=== PATIENT | male | born 1975 ===

== ENCOUNTER 2019-11-29 08:56 | Outpatient (REF) | payer MEDICAID, SELFPAY ==
--- NOTE | 2019-11-29 | US_ITS ---
EXAMINATION: ULTRASOUND ABDOMEN COMPLETE WITH ELASTOGRAPHY. CLINICAL INFORMATION: Chronic hepatitis C. COMPARISON: None TECHNIQUE: Multiple 2-D grayscale and color Doppler ultrasound images of the abdomen were obtained along with elastography. FINDINGS: Pancreas: Visualized portions are unremarkable. The tail is obscured by bowel gas shadowing. Abdominal aorta: Unremarkable. Inferior vena cava: Unremarkable. Liver: No minimal surface nodularity and some images without significant focal abnormality. Punctate echogenic calcifications are noted. The main portal vein is patent. Elastography: 2.61 median value, IQR/median 0.16. Gallbladder: Unremarkable. Common bile duct: 0.4 cm. Right kidney: 9.5 cm. Unremarkable. IMPRESSION: 1. Mild surface nodularity seen on some images suggest early cirrhosis without focal abnormality. Small coarse calcifications demonstrate benign features. Elastography shows a fibrosis stage in the range of moderate to severe with good sampling.
== END 2019-11-29 08:57 | disposition home or self-care (01) ==
LOC: HO.US 08:56
PROVIDERS: Visit Provider Family Medicine
DX: B18.2 Chronic viral hepatitis C (principal)
CPT/HCPCS: 76705; 76981

== ENCOUNTER 2021-07-08 09:01 | Emergency (ER) | payer MEDICAID, SELFPAY ==
--- NOTE | ~2021-07-08 | CT_ITS ---
EXAMINATION: CT HEAD WITHOUT CONTRAST CLINICAL INFORMATION: Headache. Blurred vision. COMPARISON: Head CT February 03, 2019 TECHNIQUE: Contiguous axial imaging was performed from the skull base to vertex without intravenous administration of contrast. This CT examination was performed using dose optimization techniques as appropriate, variously including the following: *Automated exposure control *Adjustment of mA and/or kV according to patient size (this includes techniques or standardized protocols for targeted exams where dose is matched to indication/reason for exam; i.e. extremities or head) *Use of iterative reconstruction technique DLP: 708 mGy-cm FINDINGS: There is no evidence of acute intracranial hemorrhage or territorial infarction. No abnormal mass effect or midline shift is seen. [place] to white matter differentiation is well preserved. No extra-axial fluid collections are identified. The ventricles are normal in size. There is no abnormal attenuation within the brain parenchyma. The osseous structures and soft tissues are normal. Small osteophyte osteoma noted within the right frontal sinus. There are scattered opacified ethmoid air cells again noted. Minimal mucosal thickening of the sphenoid sinus. Other visualized paranasal sinuses and mastoid air cells are well aerated. CT/CT head/brain wo con IMPRESSION: 1. No acute intracranial pathology. 2. Sinus disease.
[2021-07-08 09:11] VITALS: BP 157/97; PULSE 100; RESP 20; TEMP 36.1; O2SAT 98; BMI 26.6
--- NOTE | 2021-07-08 10:16 | ED.HA ---
HPI - Headache General Chief Complaint: Headache Stated Complaint: headache Time Seen by Provider: 07/08/21 10:09 Source: patient Mode of arrival: ambulatory Limitations: no limitations History of Present Illness HPI Narrative: 46 y/o male with history of HTN presents to the ER with headache x1 week. He states that the headache started behind both of his eyes and is now progressed to his entire head any feels pressure in the back of his head. He feels like is head is in a vice. He also reports intermittent dizziness and blurred vision. He had a similar headache in the past and came to the ER where he was found to be significantly hypertensive and started on antihypertensive medications. He reports intermittent compliance, has lately not been taking his blood pressure medication because it and he has not seen his doctor in some time. He denies any weakness, numbness, tingling. This is not the worse headache of his life. He denies a history of migraines. MD elicited complaint: headache Pertinent past history: hypertension Onset (ago): week(s) (1) Onset description: gradually Location: generalized Severity: moderate Pain scale (0-10): 8 Quality & Timing: throbbing and squeezing Exacerbating factors: light and noise Relieving factors: NSAIDs Context: occurred at rest Associated symptoms: photophobia, sensitivity to sound and lightheadedness Treatments prior to arrival: none Related Data Previous Rx's Medication Instructions Recorded amlodipine 5 mg-benazepril 10 mg 1 cap PO DAILY #30 cap 07/08/21 capsule tnmckwyopm-qzxlymzstflmw-gxtzipxc 1 tab PO Q6H PRN #14 tab 07/08/21 50 mg-325 mg-40 mg tablet Allergies Allergy/AdvReac Type Severity Reaction Status Date / Time No Known Allergies Allergy Unverified 11/11/19 19:46 [No Known Allergies*] Review of Systems Review of Systems: Constitutional: No Fever, No Chills ENT/Mouth: No sore throat, No Rhinorrhea Eyes: No Eye Pain, No Swelling, No Redness, +blurred vision Cardiovascular: No Chest Pain, No SOB, No Orthopnea, No Edema Respiratory: No Cough, No Sputum Gastrointestinal: No Nausea, No Vomiting, No Diarrhea, No abdominal Pain Genitourinary: No Dysuria, No Urinary Frequency, No Hematuria Musculoskeletal: No joint pain, No Myalgias Skin: No Skin Lesions, No rash Neuro: No Weakness, No Numbness, + Dizziness, + Headache Psych: + Anxiety/Panic, No Depression Heme/Lymph: No Bruising, No Lymphadenopathy PMFSH Social History Social History Advance Directives: No Advance Directives Information Provided: No Physical Exam Vital Signs: Vital Signs: Last Vital Signs Temp 97 F 07/08/21 09:11 Pulse 100 07/08/21 09:11 Resp 18 07/08/21 12:00 BP 157/97 H 07/08/21 09:11 Pulse Ox 98 07/08/21 09:11 BMI result Body Mass Index 26.6 Appearance: Alert. Oriented X3. No acute distress. Eyes: Pupils equal, round and reactive to light. EOMI, no nystagmus ENT: Pharynx normal. Neck: Normal inspection. Neck supple. CVS: Normal heart rate and rhythm. Pulses normal. Respiratory: No respiratory distress. Breath sounds normal. Abdomen: Soft and nontender. +BS x4 Skin: Skin warm and dry. Normal skin color. Normal skin turgor. No rashes. Extremities: No lower extremity edema. Neuro: Oriented X 3. No motor deficit. No sensory deficit. Steady gait Course Course Course Narrative: 46-year-old male presents to the ER with 1 week of generalized headache. He feels like his ?brain is swollen.? He reports some dizziness and vision changes. He has had similar ER visit in the past when he was found to be hypertensive. Blood pressure today is 157/97. He has been off of his antihypertensives because of noncompliance. Will get CT scan and medicate with Fioricet. Will re-evaluate. Reevaluation(s) Reevaluation #1: CT head is unremarkable. Patient reports some prevent with his headache but would like an additional medication to help with the pain. IM Toradol ordered with good affect. He is asking for refill of his amlodipine/benazepril for his blood pressure. He states he will follow-up with his primary care doctor for further refills going forward. Counseled on the importance of medication compliance, diet compliance, and close outpatient follow-up. Stable for discharge home. MDM - Headache Lab Data Labs: Lab Results 07/08/21 07/08/21 Range/Units 10:29 10:29 COVID-19 ([facility]) Negative (Negative) COVID-19 Clin Com See Note Influenza Type A (NINO) Negative (Negative) Influenza Type B (NINO) Negative (Negative) Influenza A & B Note See Note Critical Care Time Critical Care Time Critical Care Time: No Discharge Plan Discharge Clinical Impression: Headache, Hypertension Patient Disposition: Home, Self-Care Instructions: Hypertension (ED), General Headache (ED) Additional Instructions: Your CT scan was normal. You are negative for COVID and Flu. Take the prescribed medication as needed for headaches. Stay hydrated, drink plenty of fluids. Follow up with your doctor this week. A 1 month supply of your blood pressure medication has been sent to your pharmacy. Follow-up with your doctor for refills. If you develop new or worsening symptoms call 911 or come back to the ER for further evaluation. Prescriptions: New ejohtqklai-kfwegdmqhqqdc-lbmv 50-325-40 mg tablet 1 tab PO Q6H PRN (Reason: pain) Qty: 14 0RF amlodipine-benazepril 5-10 mg capsule 1 cap PO DAILY Qty: 30 0RF
[2021-07-08] MEDS: Butalb/Acetamin/Caff 50/325/40 TABLET 1 TAB PO (10:32)
[2021-07-08 11:12] LABS: IDNOW Serial# 16C4AD1C; Influenza A Negative (Negative); Influenza B2 Negative (Negative)
[2021-07-08 11:13] LABS: COVID-19 Test Negative (Negative)
[2021-07-08] MEDS: Ketorolac Tromethamine 30 MG/ML VIAL IM (11:58)
[2021-07-08 12:00] VITALS: RESP 18
== END 2021-07-08 13:09 | disposition home or self-care (01) ==
PROVIDERS: Physician Assistant; Emergency Provider Emergency Medicine
DX: R51.9 Headache, unspecified (principal); I10 Essential (primary) hypertension; Z91.14 Patient's other noncompliance with medication regimen; Z20.822 Contact with and (suspected) exposure to COVID-19
CPT/HCPCS: 70450; 87502; 87635; 96372; 99283; 99284; J1885

== ENCOUNTER 2021-07-10 16:14 | Emergency (ER) | payer MEDICAID, SELFPAY ==
--- NOTE | ~2021-07-10 | XR_ITS ---
EXAMINATION: XR CHEST CLINICAL INFORMATION: Chest pain COMPARISON: None TECHNIQUE: Frontal view of the chest was obtained. FINDINGS: The lungs are clear. There is no pneumothorax, pleural reaction, infiltrate, or effusion. The heart is normal in size. The costophrenic sulci are well-defined. The hilar and mediastinal contours and visualized bony structures are unremarkable. XR/XR chest 1V IMPRESSION: Unremarkable examination.
--- NOTE | 2021-07-10 16:18 | ECG_ITS ---
Test Reason : chest pain Blood Pressure : / mmHG Vent. Rate : 080 BPM Atrial Rate : 081 BPM P-R Int : 152 ms QRS Dur : 082 ms QT Int : 338 ms P-R-T Axes : 047 037 044 degrees QTc Int : 389 ms Normal sinus rhythm Normal ECG No significant changes when compared with the previous EKG of 03 feb 2019 Referred By: Generic ED Physician Electronically Signed By:POONAM MCQUEEN
[2021-07-10 16:24] VITALS: BP 143/101; PULSE 81; RESP 18; TEMP 36.2; O2SAT 99; BMI 26.6
[2021-07-10 16:36] LABS: MANUAL DIFF FLAG NO
[2021-07-10 16:42] LABS: Basophils Absolute Auto 0.1 X10*3/uL (0.0-0.2); Basophils Percent Auto 0.5 % (0-2); Eosinophils Absolute Auto 0.3 X10*3/uL (0.0-0.4); Eosinophils Percent Auto 2.1 % (0-4); Hematocrit 42.4 % (42.0-52.0); Imm Gran Abs Auto 0.04 X10*3/uL (0.00-0.03); Imm Gran Pct Auto 0.3 % (0.0-0.4); Mean Corpuscular Hemoglobin 26.5 pg (27.0-33.0); Mean Corpuscular Volume 80.2 fL (80.0-98.0); Mean Platelet Volume 10.9 fL (9.4-12.4); Monocytes Absolute Auto 0.7 X10*3/uL (0.1-1.2); Monocytes Percent Auto 5.3 % (2-11); Neutrophils Absolute Auto 7.4 x10*3/uL (2.0-8.3); Neutrophils Percent Auto 59.8 % (45-73); Platelet Count 260 X10*3/uL (160-400); Red Blood Count 5.29 X10*6/uL (4.60-5.80); Red Cell Distribution Width 12.9 % (11.0-16.0); White Blood Count 12.4 X10*3/uL (4.8-10.8)
[2021-07-10 16:56] LABS: Anion Gap 14 (12-20); Blood Urea Nitrogen 11 mg/dL (9-16); Calcium 10.5 mg/dL (8.4-10.2); Carbon Dioxide 27 mmol/L (22-29); Chloride 105 mmol/L (96-108); Creatinine Clr Calc Pharmacy 77.7; Estimated Glomerular Filt Rate > 60; Glucose Random 99 mg/dL (60-115); Potassium 4.1 mmol/L (3.3-5.1); Sodium 142 mmol/L (135-145)
[2021-07-10 17:01] LABS: Troponin-I High Sensitivity 3.9 ng/L (<3.5-35.0)
--- NOTE | 2021-07-10 17:36 | ED_ITS ---
HPI - Chest Pain General Chief Complaint: Chest Pain Stated Complaint: chest pain Time Seen by Provider: 07/10/21 17:27 Source: patient Mode of arrival: ambulatory Limitations: no limitations History of Present Illness HPI narrative: Patient comes to the emergency room complaining of chest pain that started 6 hours ago. Patient states that 2 days ago he was started on blood pressure medication (amlodipine-benazepril) for headaches, high blood pressure and chest pressure. States that he has been doing well. Denies headache or chest pain but complaining of chest pressure. States that around noon he started feeling palpitations, he became very anxious and scared, started having chest pressure and came to the emergency room. Patient states that he feels anxious/agitated. Related Data Previous Rx's Medication Instructions Recorded amlodipine 5 mg-benazepril 10 mg 1 cap PO DAILY #30 cap 07/08/21 capsule ysysedcwpu-ccmhqdnxglohl-ytjcbfyt 1 tab PO Q6H PRN #14 tab 07/08/21 50 mg-325 mg-40 mg tablet Allergies Allergy/AdvReac Type Severity Reaction Status Date / Time No Known Allergies Allergy Verified 07/10/21 16:24 [No Known Allergies*] Review of Systems Review of Systems: Constitutional : No Weight loss, No Fever, No Chills, No Night Sweats, No Fatigue, No Malaise ENT/Mouth : No Hearing loss, No Ear Pain, No Nasal Congestion, No Sinus Pain, No Hoarseness, No sore throat, No Rhinorrhea, No Swallowing Difficulty Eyes: No Eye Pain, No Swelling, No Redness, No Foreign Body, No Discharge, No Vision Changes Cardiovascular : Complaining of chest pressure for 6 hours, palpitations No SOB, No Dyspnea on Exertion, No Orthopnea Respiratory : No Cough, No Sputum, No Wheezing, No Smoke Exposure, No Dyspnea Gastrointestinal : No Nausea, No Vomiting, No Diarrhea, No Constipation, No abdominal Pain, No Hematochezia, No Melena Genitourinary : no irregular bleeding, No Dysuria, No Urinary Frequency, No Hematuria, No Urinary Incontinence, No Urgency, No Flank Pain, No Urinary Flow Changes, No Hesitancy Musculoskeletal : No joint pain, No Myalgias, No Joint Swelling Skin : No Skin Lesions, No rash Neuro : No Weakness, No Numbness, No Paresthesias, No Loss of Consciousness, No Dizziness, No Headache Psych: complaining of feeling anxious, agitated No Depression, No SI/HI/AH/VH, No Social Issues, Heme/Lymph: No Bruising, No Bleeding,No Lymphadenopathy Endocrine : No Polyuria, No Polydipsia, No Temperature Intolerance [facility] Past Medical History Medical History (Updated 07/10/21 @ 17:46 by Pilar Redd MD) Hypertension Social History Social History Advance Directives: No Advance Directives Information Provided: No Physical Exam Vital Signs: Vital Signs: Last Vital Signs Temp 97.2 F 07/10/21 16:24 Pulse 81 07/10/21 16:24 Resp 18 07/10/21 16:24 BP 143/101 H 07/10/21 16:24 Pulse Ox 99 07/10/21 16:24 BMI result Body Mass Index 26.6 Course Course Course Narrative: Patient has been having palpitations, chest pressure for 6 hours now. Patient's heart rate is in the low 80s, blood pressure 140 systolic. EKG and troponin within normal limits. Patient crying, states that he has been going ?through a lot?, states that he feels very agitated. Patient giving p.o. Ativan. After p.o. Ativan, patient states that he feels much better, he states that he has residual achiness between his ribs on the right side. Otherwise he feels much better. I discussed with the patient that if he continues having symptoms, it would be a good idea to talk to his primary care physician about scheduling a stress test. MDM - Chest Pain Lab Data Result diagrams: 07/10/21 16:24 07/10/21 16:24 Labs: Lab Results 07/10/21 07/10/21 07/10/21 Range/Units 16:24 16:24 16:24 WBC 12.4 H (4.8-10.8) X10*3/uL RBC 5.29 (4.60-5.80) X10*6/uL Hgb 14.0 (14.0-18.0) g/dl Hct 42.4 (42.0-52.0) % MCV 80.2 (80.0-98.0) fL MCH 26.5 L (27.0-33.0) pg MCHC 33.0 (31.0-36.0) g/dl RDW 12.9 (11.0-16.0) % Plt Count 260 (160-400) X10*3/uL MPV 10.9 (9.4-12.4) fL Immature Gran % (Auto) 0.3 (0.0-0.4) % Neut % (Auto) 59.8 (45-73) % Lymph % (Auto) 32.0 (20-40) % [place] % (Auto) 5.3 (2-11) % Eos % (Auto) 2.1 (0-4) % Baso % (Auto) 0.5 (0-2) % Lymph # (Auto) 4.0 (1.2-4.9) X10*3/uL [place] # (Auto) 0.7 (0.1-1.2) X10*3/uL Eos # (Auto) 0.3 (0.0-0.4) X10*3/uL Baso # (Auto) 0.1 (0.0-0.2) X10*3/uL Abs Immat Gran (auto) 0.04 H (0.00-0.03) X10*3/uL Absolute Neuts (auto) 7.4 (2.0-8.3) x10*3/uL Absolute Nucleated RBC 0.000 (0.0-0.012) X10*3/uL Nucleated RBC % (auto) 0.0 (0.0-0.2) /100WBC Sodium 142 (135-145) mmol/L Potassium 4.1 (3.3-5.1) mmol/L Chloride 105 (96-108) mmol/L Carbon Dioxide 27 (22-29) mmol/L Anion Gap 14 (12-20) BUN 11 (9-16) mg/dL Creatinine 1.06 (0.5-1.4) mg/dL Estim Creat Clear Calc 77.7 Estimated GFR > 60 Random Glucose 99 (60-115) mg/dL Calcium 10.5 H (8.4-10.2) mg/dL Troponin I High Sens 3.9 (<3.5-35.0) ng/L Imaging Data Chest x-ray: Radiologist's impression: he lungs are clear. There is no pneumothorax, pleural reaction, infiltrate, or effusion. The heart is normal in size. The costophrenic sulci are well-defined. The hilar and mediastinal contours and visualized bony structures are unremarkable. XR/XR chest 1V IMPRESSION: Unremarkable examination. ECG Data ECG #1: Attestation: I personally reviewed and interpreted this ECG as follows: (Sinus rhythm, heart rate 80, no ST segment depression or elevation, no T-wave inversion, QTC 389) Discharge Plan Discharge Clinical Impression: Atypical chest pain, Anxiety Patient Disposition: Home, Self-Care Instructions: Chest Pain (ED), Anxiety (ED) Additional Instructions: Please follow-up with your primary care physician tomorrow. If you have any worsening or new symptoms, please return to the emergency room or call 911 Prescriptions: No Action xuyusnatxy-srsrqfycpqfae-aaxt 50-325-40 mg tablet 1 tab PO Q6H PRN (Reason: pain) Qty: 14 0RF amlodipine-benazepril 5-10 mg capsule 1 cap PO DAILY Qty: 30 0RF
[2021-07-10] MEDS: LORazepam 1 MG TABLET 2 MG PO (17:41)
== END 2021-07-10 19:48 | disposition home or self-care (01) ==
PROVIDERS: Emergency Provider Emergency Medicine
DX: R07.89 Other chest pain (principal); F41.1 Generalized anxiety disorder; F43.0 Acute stress reaction; Z79.899 Other long term (current) drug therapy
CPT/HCPCS: 36415; 71045; 80048; 84484; 85025; 93005; 99282; 99283; 99284

== ENCOUNTER → 2021-10-31 10:50 | Outpatient (BNVA) | payer MEDICAID, SELFPAY | PROVIDERS: PCP Registered Nurse; Visit Provider Nurse Practitioner | DX: K64.9 Unspecified hemorrhoids (principal); K62.5 Hemorrhage of anus and rectum; G89.29 Other chronic pain; M54.6 Pain in thoracic spine; R13.10 Dysphagia, unspecified; R55 Syncope and collapse; K74.60 Unspecified cirrhosis of liver; B18.2 Chronic viral hepatitis C | CPT/HCPCS: 99202 ==

== ENCOUNTER 2021-11-01 08:54 | Outpatient (REF) | payer MEDICAID, SELFPAY ==
--- NOTE | ~2021-11-01 | US_ITS ---
EXAMINATION: US COMPLETE ABDOMEN WITH LIVER ELASTOGRAPHY CLINICAL INFORMATION: Liver disease COMPARISON: None. TECHNIQUE: Real-time imaging of the abdominal viscera. Noninvasive ultrasound liver fibrosis assessment is performed using Álvaro ElastPQ point quantification shear wave elastography (2D-SWE) with a C5-2 MHz transducer. Multiple elastography samples are obtained. FINDINGS: PANCREAS: The visualized pancreatic head and body are normal in appearance. The remainder of the pancreas is obscured from visualization by the overlying bowel gas. ABDOMINAL AORTA: The proximal, middle, and distal aortic segments are normal in caliber. INFERIOR VENA CAVA: Visualized portions are normal. LIVER: The liver demonstrates normal size, contour and echogenicity. No focal lesion or intrahepatic biliary duct dilatation. There are punctate echogenic calcification right hepatic lobe. The right lobe measures 16.0 cm in length. The left lobe measures 9.7 cm in length. Portal flow is hepatopedal Shear wave liver elastography median stiffness is 1.95 m/s (reference: normal median stiffness is 1.3 m/s or less). IQR/median stiffness to assess sampling precision is 0.18 (reference: good quality data set is IQR/median stiffness of 0.15 or less). GALLBLADDER: Normal. The gallbladder is physiologically distended without evidence of stones, sludge, polyps, wall thickening or pericholecystic fluid. COMMON BILE DUCT: Normal in caliber measuring 0.5 cm in diameter. RIGHT KIDNEY: Normal. No hydronephrosis. No renal calculi or focal parenchymal lesions. The kidney measures 10.4 cm in maximum dimension. LEFT KIDNEY: Normal. No hydronephrosis. No renal calculi or focal parenchymal lesions. The kidney measures 10.2 cm in maximum dimension. SPLEEN: Normal. The spleen measures 8.8 cm in maximum dimension. FREE FLUID: None. US/US abdomen comp w elastography IMPRESSION: 1. Punctate echogenic calcification right hepatic lobe otherwise liver is unremarkable. 2. Liver elastography: Median liver stiffness is 1.95 m/s. findings correlate with cACLD(suggestive). REFERENCE: Society of Radiologists in Ultrasound Liver Stiffness Thresholds (2019): LIVER STIFFNESS THRESHOLDS: *Liver Stiffness equal or less than 1.3 m/s: High probability of being normal. *Liver Stiffness less than 1.7 m/s: In the absence of other known clinical signs, rules out compensated advanced chronic liver disease. *Liver Stiffness 1.7-2.1 m/s: Suggestive of compensated advanced chronic liver disease but need further test for confirmation. *Liver Stiffness over 2.1 m/s: Rules in compensated advanced chronic liver disease. *Liver Stiffness over 2.4 m/s: Suggestive of clinically significant portal hypertension. QUALITY OF DATA SET: *IQR/Median value equal or less than 0.15 implies a quality data set. *IQR/Median value over 0.15 implies a poor quality data set. SIGNIFICANT CHANGE FROM PRIOR EXAM: Significant change if liver stiffness measurement is 10% or greater from prior exam. OTHER CONSIDERATIONS: The stage of liver fibrosis may be overestimated in the setting of acute hepatitis, liver inflammation, elevated liver function tests, hepatic vascular congestion, obstructive cholestasis, non-fasting state, and infiltrative diseases such as amyloidosis and lymphoma. In some patients with NAFLD, the liver stiffness thresholds for compensated advanced chronic liver disease may be lower. In causes other than viral hepatitis and NAFLD, liver stiffness thresholds are not well established.
== END 2021-11-01 08:55 | disposition home or self-care (01) ==
LOC: HO.US 08:54
PROVIDERS: Visit Provider Registered Nurse
DX: K76.9 Liver disease, unspecified (principal)
CPT/HCPCS: 76705; 76981

== ENCOUNTER 2021-12-07 08:33 | Outpatient (REF) | payer MEDICAID, SELFPAY ==
--- NOTE | ~2021-12-07 | XR_ITS ---
EXAMINATION: THORACIC AND LUMBAR SPINE CLINICAL INFORMATION: Unspecified in the right. COMPARISON: None TECHNIQUE: Thoracic spine 3 views. Lumbar spine 3 views. FINDINGS: Thoracic spine: There is normal thoracic kyphosis. The vertebral heights, alignment and disc heights are normal. No visible acute fracture, dislocation or subluxation seen. The paravertebral soft tissues are normal. Lumbar spine: There is normal lumbar lordosis. The vertebral heights, alignment and disc heights are normal. There is no visible acute fracture, dislocation or subluxation. There is mild right para midline spondylosis L2-L3 and L3-L4 disc levels. The SI joints are symmetrical. XR/XR thoracic spine 2V IMPRESSION: Mild right para midline L2-L3 and L3-L4 spondylosis. No visible acute fracture or dislocation seen in lumbar spine. Unremarkable dorsal spine exam.
--- NOTE | ~2021-12-07 | XR_ITS ---
EXAMINATION: THORACIC AND LUMBAR SPINE CLINICAL INFORMATION: Unspecified in the right. COMPARISON: None TECHNIQUE: Thoracic spine 3 views. Lumbar spine 3 views. FINDINGS: Thoracic spine: There is normal thoracic kyphosis. The vertebral heights, alignment and disc heights are normal. No visible acute fracture, dislocation or subluxation seen. The paravertebral soft tissues are normal. Lumbar spine: There is normal lumbar lordosis. The vertebral heights, alignment and disc heights are normal. There is no visible acute fracture, dislocation or subluxation. There is mild right para midline spondylosis L2-L3 and L3-L4 disc levels. The SI joints are symmetrical. XR/XR lumbar spine 2-3V IMPRESSION: Mild right para midline L2-L3 and L3-L4 spondylosis. No visible acute fracture or dislocation seen in lumbar spine. Unremarkable dorsal spine exam.
--- NOTE | ~2021-12-07 | FL_ITS ---
EXAMINATION: FL BARIUM SWALLOW CLINICAL INFORMATION: Dizziness and increased heart rate when eating COMPARISON: None TECHNIQUE: Barium swallow examination is performed using fluoroscopic evaluation in addition to multiple fluoroscopic spot views. The patient is imaged both upright and prone and using both thick and thin sulfate along with effervescent granules. Barium tablet was also administered. Fluoroscopy time: 0.9 minutes DAP: 4.5 Gycm2 Images: 46 FINDINGS: The swallowing mechanism is normal. No aspiration or penetration is seen. There is gastroesophageal reflux. There is mucosal irregularity of the esophagus suggestive of mild esophagitis. No mass or stricture is seen. No hernia is seen. Barium tablet passed freely into the stomach. FL/FL barium swallow IMPRESSION: Gastroesophageal reflux and mild esophagitis.
== END 2021-12-07 08:34 | disposition home or self-care (01) ==
LOC: HO.XRAY 08:33
PROVIDERS: Visit Provider Nurse Practitioner
DX: G89.29 Other chronic pain (principal); K62.5 Hemorrhage of anus and rectum; K64.9 Unspecified hemorrhoids; M54.6 Pain in thoracic spine; R13.10 Dysphagia, unspecified; R55 Syncope and collapse
CPT/HCPCS: 72070; 72100; 74220

== ENCOUNTER 2022-10-08 08:55 | Day surgery (SDC) | payer MEDICAID, SELFPAY ==
--- NOTE | 2022-10-07 10:29 | P.CONAN_ITS ---
Documented by User: Priscilla Astudillo NP 10/07/22 10:29 HPI - Anesthesia Eval Consult details Narrative: 47yo M for Colonoscopy [facility] Active Problems Active Problems: All Active Problems (Updated 10/31/21 @ 11:39 by JIE Florentino) Near syncope (Acute) Dysphagia (Acute) Chronic bilateral thoracic back pain (Acute) Hemorrhoids (Acute) Rectal bleeding (Acute) Depression (Acute) Chronic low back pain (Acute) Pre-diabetes (Acute) Smoker (Acute) Chronic hepatitis C (Acute) Cirrhosis (Acute) Past Medical History Medical History Hypertension Opioid abuse Testicular torsion Surgical History Surgical History History of orchiectomy S/P tendon repair Social History Social History Advance Directives: No Advance Directives Information Provided: Yes Meds Allergies Allergy/AdvReac Type Severity Reaction Status Date / Time No Known Allergies Allergy Verified 10/31/21 11:03 [No Known Allergies*] Exam Exam Date and Time: October 07, 2022 1029 Assessment and Plan Assessment Anesthesia Assessment: Chart Reviewed Documented by User: Nathalia Chen MD 10/08/22 09:09 [facility] Past Medical History Medical History Hypertension Opioid abuse Testicular torsion Family History Family history of problems with anesthesia: No Surgical History Surgical History History of orchiectomy S/P tendon repair History of Problems with Anesthesia: No Social History Social History Advance Directives: No Advance Directives Information Provided: Yes Meds Allergies Allergy/AdvReac Type Severity Reaction Status Date / Time No Known Allergies Allergy Verified 10/31/21 11:03 [No Known Allergies*] Exam Airway Mallampati Class: II TM Dist: >3cm Neck ROM: Full Heart: rrr Lungs: cta Assessment and Plan Assessment Anesthesia Assessment: Anesthesia Plan Discussed and Smoking Cess. Discussed Final Anesthetic Review Family History of Problems with Anesthesia: No History of Problems with Anesthesia: No NPO: Yes ASA Class: III Final Preanesthetic Review: No Changes in Pt Med Stat, Meds/Allgs Chart Reviewed, Consent Obtained/Reviewed and Anes Risks/Benef Reviewed Patient Risk: Intermediate Procedure Risk: Low Anesthetic Plan Anesthetic Plan: MAC: Disposition: Standard PACU
[2022-10-08 09:10] VITALS: BMI 27.3
[2022-10-08 09:19] VITALS: BP 130/77; PULSE 70; RESP 16; TEMP 36.3; O2SAT 97
--- NOTE | 2022-10-08 09:19 | MHC.SHP ---
Pre-Procedural Eval Section A Date of Service: 10/08/22 Section B Chief Complaint: Hemorrhage of anus and rectum Relevant Family History (Specify if Yes): No Relevant Social History: Other (specify) (prior hx of opioid use) Present Medications: see Short Stay Collaborative assessment Medical History: Significant History (Chronic liver disease with cirrhosis History of opioid abuse Smoker Chronic hepatitis C Pre diabetes Hypertension Chronic low back pain Depression) History of Previous Operations: Relevant previous surgery/procedure and date(s) (Orchiectomy status post t testicular torsion Left foot tendon repair) Allergies: Allergies Allergy/AdvReac Type Severity Reaction Status Date / Time No Known Allergies Allergy Verified 10/31/21 11:03 [No Known Allergies*] Review of Systems Sugical H&P ROS: Negative: Constitution, Cardiovascular, Respiratory, Neurological, Psychiatric, Hem-Onc, Allergic/Immunologic, Gastrointestinal, Genitourinary, Musculoskeletal, Integumentary, Endocrine and Eyes/Ears/Nose/Throat Exam Surgical H&P Exam: Normal: HEENT, Normal: Heart, Normal: Lungs, Normal: Extremities, Normal: Abdomen, Normal: Skin and Normal: Neurological Plan Diagnosis/Plan: Unchanged I have reviewed the history and physical and performed a pertinent physical examination on my patient. No changes have occurred unless specified. Time Spent With Patient Time: Total time managing care of this patient today ____ minutes.
[2022-10-08] MEDS: Lactated Ringers 1,000 ML 100 ML IVCONT (09:31)
--- NOTE | 2022-10-08 10:05 | W.PM.OPN ---
Operative Note Operative Note Date of Service: 10/08/22 Narrative: Operative Information Procedure Description: Colonoscopy Indication: rectal bleeding Anesthesia: MAC COLONOSCOPY Instrument: Olympus variable stiffness pediatric scope 190L Colonoscopy Monitoring: Vital signs and clinical assessment, continuous EKG monitoring, Pulse oximetry, Carbon Dioxide monitoring and blood pressure monitoring were done throughout the procedure. Colon withdrawal time was 7 minutes. Procedure: The patient was placed in the left lateral decubitis position and pre-procedure medications were administered. After a digital rectal examination of the ano-rectum, the video colonoscope was inserted into the rectum and advanced through the colon to the cecum/TI. The colonoscope was slowly withdrawn in a retrograde panoramic fashion and the colon mucosa was carefully examined including a retroflexed view of the rectum. Findings and interventions are described below. Procedure Difficulty: easy Findings: Terminal Ileum-normal Cecum: 8-10 mm sessile polyp removed with cold snare Ascending Colon: 8-9 mm sessile polyp removed with cold snare Transverse Colon -normal Descending Colon:normal Sigmoid Colon: normal Rectum: Retroflexion with small to medium inflammed internal hemorrhoids, grade II Anorectum - internal hemorrhoids seen on anterior view Colon preparation: [place] Bowel Preparation Scale Right colon; 2 Transverse colon: 2 Left colon; 2 (0 = Unprepared colon segment with mucosa not seen due to solid stool that cannot be cleared. 1 = Portion of mucosa of the colon segment seen, but other areas of the colon segment not well seen due to staining, residual stool and/or opaque liquid. 2 = Minor amount of residual staining, small fragments of stool and/or opaque liquid, but mucosa of colon segment seen well. 3 = Entire mucosa of colon segment seen well with no residual staining, small fragments of stool or opaque liquid) Impression and Post Procedure Diagnosis: polyps internal hemorrhoids Plan: High fiber diet leaflet Avoid straining at stool, epsom salts and sitz bath, anusol supps or cream Repeat Colonoscopy in 5 years or earlier if clinically indicated Above findings were reviewed with the patient and relevant handouts were provided if indicated.
[2022-10-08 10:10] VITALS: BP 116/72; PULSE 58; RESP 20; TEMP 36.5; O2SAT 99
[2022-10-08 10:25] VITALS: BP 141/86; PULSE 50; RESP 18; TEMP 36.5; O2SAT 97
== END 2022-10-08 10:52 | disposition home or self-care (01) ==
PROVIDERS: PCP Registered Nurse; Visit Provider Internal Medicine Gastroenterology
PROC: 0DJD8ZZ Inspection of Lower Intestinal Tract, Via Natural or Artificial Opening Endoscopic (ICD-10-PCS; CPT 45378; principal; 2022-10-08 11:40)
DX: K62.5 Hemorrhage of anus and rectum (principal); D12.0 Benign neoplasm of cecum; D12.2 Benign neoplasm of ascending colon; K64.1 Second degree hemorrhoids; K74.60 Unspecified cirrhosis of liver; B18.2 Chronic viral hepatitis C; I10 Essential (primary) hypertension; R73.03 Prediabetes; Z90.79 Acquired absence of other genital organ(s); F11.11 Opioid abuse, in remission; F17.210 Nicotine dependence, cigarettes, uncomplicated
CPT/HCPCS: 45385; 88305

== ENCOUNTER → 2022-10-08 08:55 | Outpatient (BNV) | payer MEDICAID, SELFPAY | PROVIDERS: PCP Registered Nurse; Visit Provider Internal Medicine Gastroenterology | DX: K62.5 Hemorrhage of anus and rectum (principal); D12.0 Benign neoplasm of cecum; D12.2 Benign neoplasm of ascending colon | CPT/HCPCS: 45385 ==

== ENCOUNTER 2022-10-22 08:40 | Outpatient (AMB) | payer MEDICAID, SELFPAY ==
--- NOTE | 2022-10-22 08:45 | A.OFFVIS_ITS ---
Intake Vital Signs 10/22/22 08:47 Height 5 ft 6 in Weight 167 lb 8.821 oz BMI 27.0 BP 149/87 H Blood Pressure Location Rt brachial Position Sitting Pulse 65 Intake Visit Reasons: S/p colon- [place] Intake Note: Patient presents to in office visit today in follow up of colonoscopy CC: Patient c/o lower back pain constant when standing 8/10 pain scale. Patient w/ lower back pain worst after procedure. He reports rectal bleeding. Kitchen Steward/Stewardess Required: No Allergies No Known Allergies [No Known Allergies*] Allergy (Verified 11/11/22 12:21) HPI S/p colon- [place] HPI Details Assessment & Plan (1) Rectal bleeding: ?Code(s): K62.5 - Hemorrhage of anus and rectum ?Plan: He has been having the problem for a couple of years, but he just moved up here from [place]. It started when he was lifting heavy stuff. 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 Now he feels he is moving he bowels well, but the blood will just shoot out just before the stool comes and it will be on the TT and starts to turn the bowel water red. He will clean it up and put some cold rectal wipes-baby wipes until it goes back to normal. He will not bleed again, just in the AM with the BM. It does not happen with all BM's, but a few times a week. It really seems to be exacerbated by heavy lifting. He denies any rectal pain or itching, and he does not know of any FHX of CRC or polyps. If he does not clean the area well, however, he will feel like has to constantly move his bowels. He may have had a colonoscopy in his teen years, he has a long hx of stomach problems. He describes a cold/empty feeling in the epigastrum. It is worse with bending over, he can not clearly relate it to eating or BM's. This will happen 3-4 times a month then fades after about 24 hours. At times it feels like little needles, like a amish doll. He does have a hx of something in my back that gets out of alignment. Will order xrays of lumbar and thoracic spine, sounds like radicular abd pain. He is having trouble with near syncope with swallowing. This happens on the first bite, then it will go away. This sounds like a vasovagal reaction that is quite curious. He says he gets dizzy alot. He suffers HTN. His brother recently from [place]. He will be going to [place] for He is being txed for Hep C at [facility], has upcoming US via their clinic.? He currently has an active viral load. There are no prior problems with anesthesia or sedation.? He denies any cardiac or respiratory problems. ROV after barium swallow, of course also after colonoscopy (2) Dysphagia: ?Code(s): R13.10 - Dysphagia, unspecified (3) Hemorrhoids: ?Code(s): K64.9 - Unspecified hemorrhoids (4) Chronic bilateral thoracic back pain : ?Code(s): M54.6 - Pain in thoracic spine; G89.29 - Other chronic pain (5) Cirrhosis: ?Code(s): K74.60 - Unspecified cirrhosis of liver (6) Near syncope: ?Code(s): R55 - Syncope and collapse (7) Chronic hepatitis C: ?Code(s): B18.2 - Chronic viral hepatitis C ? ? ? Orders: Orders Liver Panel Today G89.29 - Other chr onic pain, K62.5 - Hemorrhage of lizett s and rectum, K64. 9 - Unspecified he morrhoids, M54.6 - Pain in thoracic spine, R13.10 - Dy sphagia, unspecifi ed, R55 - Syncope and collapse ? Prothrombin Time I NR Today G89.29 - Other chr onic pain, K62.5 - Hemorrhage of lizett s and rectum, K64. 9 - Unspecified he morrhoids, M54.6 - Pain in thoracic spine, R13.10 - Dy sphagia, unspecifi ed, R55 - Syncope and collapse ? FL barium swallowA Today G89.29 - Other chr onic pain, K62.5 - Hemorrhage of lizett s and rectum, K64. 9 - Unspecified he morrhoids, M54.6 - Pain in thoracic spine, R13.10 - Dy sphagia, unspecifi ed, R55 - Syncope and collapse ? XR lumbar spine 2- 3V Today G89. 29 - Other chr onic pain, K62.5 - Hemorrhage of lizett s and rectum, K64. 9 - Unspecified he morrhoids, M54.6 - Pain in thoracic spine, R13.10 - Dy sphagia, unspecifi ed, R55 - Syncope and collapse ? XR thoracic spine 2V Today G89. 29 - Other chr onic pain, K62.5 - Hemorrhage of lizett s and rectum, K64. 9 - Unspecified he morrhoids, M54.6 - Pain in thoracic spine, R13.10 - Dy sphagia, unspecifi ed, R55 - Syncope and collapse ? Medications: New hydrocortisone 2.5 % (Proctosol HC) 1 appl? HI BID 30 grams 3RF hemorrho ids K64.9 - Unspecifie d hemorrhoids ? peg 3350-electroly karie 236-22.74-6.74 -5.86 gram (Golyt oseas) ?? until feca l effluent is ricky r; do not exceed a total volume of 2 ,000 mL 240 mL? PO Q10M 1 day 4,000 mL 0RFD Z12.11 - Encounter for screening for malignant neoplas m of colon ? ? COLONOSCOPY 10/08/22 Findings: Terminal Ileum-normal Cecum: 8-10 mm sessile polyp removed with cold snare Ascending Colon: 8-9 mm sessile polyp removed with cold snare Transverse Colon -normal Descending Colon:normal Sigmoid Colon:? normal Rectum: Retroflexion with small to medium inflammed internal hemorrhoids, grade II Anorectum - internal hemorrhoids seen on anterior view Impression and Post Procedure Diagnosis: polyps internal hemorrhoids Plan: High fiber diet leaflet Avoid straining at stool, epsom salts and sitz bath, anusol supps or cream Repeat Colonoscopy in 5 years or earlier if clinically indicated BIOPSY Received: 10/08/22 Diagnosis A.? Colon, ascending, polyp:? Tubular adenoma, completely excised; negative for high-grade dysplasia and carcinoma.? B.? Colon, cecal polyp:? Tubular adenoma, likely excised; negative for high- grade dysplasia and carcinoma. XR LUMBAR AND THORACIC 12/13/21? FINDINGS: Thoracic spine: There is normal thoracic kyphosis. The vertebral heights, alignment and disc heights are normal. No visible acute fracture, dislocation or subluxation seen. The paravertebral soft tissues are normal. Lumbar spine: There is normal lumbar lordosis. The vertebral heights, alignment and disc heights are normal. There is no visible acute fracture, dislocation or subluxation. There is mild right para midline spondylosis L2-L3 and L3-L4 disc levels. The SI joints are symmetrical. ? XR/XR lumbar spine 2-3V IMPRESSION: Mild right para midline L2-L3 and L3-L4 spondylosis. No visible acute fracture or dislocation seen in lumbar spine. ? Unremarkable dorsal spine exam. BARIUM SWALLOW 12/07/21 1FINDINGS: The swallowing mechanism is normal. No aspiration or penetration is seen. There is gastroesophageal reflux. There is mucosal irregularity of the esophagus suggestive of mild esophagitis. No mass or stricture is seen. No hernia is seen. Barium tablet passed freely into the stomach. FL/FL barium swallow IMPRESSION: Gastroesophageal reflux and mild esophagitis. TODAY'S VISIT He did not realize I ordered labs and he says he will go for the liver panel and the PT INR today. he tolerated the procedure well. The procedure was well tolerated. The results were explained and the patient is agreeable to the follow-up interval as stated. The bowel pattern has returned to normal. Education was provided to tell any 1st degree relatives about their findings to be sure that they are screened by age 45. Educated that they will be put on a recall list when it is time for their repeat scope but should they move out of state or away from the hospital they will need to remember along with their primary to repeat the procedure in a timely fashion to avoid any adverse complications. Reviewed the x-rays any does have lumbar spondylosis that could be causing some radiation into the abdomen. The thoracic spine appears to be fairly normal. Review of the barium swallow does show GERD but no other severe abnormality.. He continues to have bleeding and what sounds like rectal prolapse as he describes my butt comes out. Start omeprazole for GERD and trial of bentyl 20mg bid. He is eating more fiber as recommended by the endoscopist. He has a weird feeling when he has the dysphagia of dizziness and near synocpe, this also happens when he goes under shower water and when he pulls his shirt off over his head. He father had similar sx. This sounds like it might be a vasovagal reaction. ROV 6 weeks. [facility] Medical History Hepatitis C Hypertension Opioid abuse Testicular torsion Surgical History H/O colonoscopy History of orchiectomy S/P tendon repair Social History Alcohol intake: never Patient Tobacco Use Status: Current everyday Tobacco user Tobacco use type: Cigarette Cigarettes Per Day: 10 Substance Use Type: Marijuana Advance Directives: No Advance Directives Information Provided: Yes Review of Systems Const Denies fatigue, Denies fever(s), Denies night sweats, Denies poor appetite and Denies weight loss ENT Reports Normal hearing present, Denies dental pain, Reports dysphagia, Denies hearing loss, Denies mouth pain, Denies odynophagia, Denies throat swelling, Denies tongue swelling and Reports other (Dentition adequate) Card Reports lightheadedness Resp Reports no additional complaints GI Denies abdominal pain, Denies melena, Denies bloating, Denies hematochezia, Denies constipation, Reports GI cramping, Reports dysphagia, Denies excessive flatus, Denies early satiety, Reports heartburn, Denies diarrhea, Denies nausea, Denies odynophagia, Denies vomiting and Denies hematemesis Musc Reports back pain Skin/Breast Denies pruritus, Denies lesions, Denies rash and Denies jaundice Neuro Reports Normal hearing present and Denies Abnormal speech present Endo Denies fatigue Aller/Immun Denies throat swelling and Denies tongue swelling Physical Exam Vital Signs: Last Vital Signs Pulse 65 10/22/22 08:47 BP 149/87 H 10/22/22 08:47 BMI result Body Mass Index 27.0 Const General: cooperative, no acute distress, well developed and well groomed Nutritional Appearance: average body habitus and well nourished Orientation/consciousness: oriented to person, oriented to place and oriented to time Limitations: No language barrier HEENT Head: Yes normocephalic and Yes atraumatic Eyes General: appearance normal, both eyes and all related structures Pupils: Equal, round and reactive pupils present Neck Neck: Yes normal visual inspection and Yes no lymphadenopathy Thyroid: Thyroid normal Resp Effort & Inspection: normal respiratory effort and able to speak in complete sentences Auscultation: clear to auscultation bilaterally Cardio Rate: regular rate Rhythm: regular rhythm Heart sounds: Normal, physiologic split S2 sound present Peripheral pulses: radial pulses present and posterior tibial pulses present GI Inspection: No distended and No Abdominal panniculus present Palpation (GI): Soft to palpation, nontender, no guarding, not rigid and No hepatosplenomegaly present Percussion: Yes normal to percussion Auscultation: normal bowel sounds Rectal Exam - Male: Yes deferred Skin General skin exam: no rashes or lesions noted, turgor normal, skin not dry, no jaundice, No spider nevi and no striae Rashes: no rashes Nails: normal Neuro General: oriented to person, oriented to place and oriented to time Cranial nerves: Yes Equal, round and reactive pupils present and Yes Normal hearing present Speech: No Abnormal speech present Extrem General: Yes normal to inspection, No clubbing, No cyanosis and No edema Psych Appearance: grossly normal and well kempt Mental Status: mental status grossly normal Speech and movement: Normal speech and movement present Affect: normal affect Attitude: cooperative Thought process: Normal thought process present and not confabulating Thought content: Normal thought content present Insight: Limited insight present (Psych) Judgement: Limited judgement present (Psych) Results Reviewed Results Reviewed: COLONOSCOPY 10/08/22 Findings: Terminal Ileum-normal Cecum: 8-10 mm sessile polyp removed with cold snare Ascending Colon: 8-9 mm sessile polyp removed with cold snare Transverse Colon -normal Descending Colon:normal Sigmoid Colon:? normal Rectum: Retroflexion with small to medium inflammed internal hemorrhoids, grade II Anorectum - internal hemorrhoids seen on anterior view Impression and Post Procedure Diagnosis: polyps internal hemorrhoids Plan: High fiber diet leaflet Avoid straining at stool, epsom salts and sitz bath, anusol supps or cream Repeat Colonoscopy in 5 years or earlier if clinically indicated BIOPSY Received: 10/08/22 Diagnosis A.? Colon, ascending, polyp:? Tubular adenoma, completely excised; negative for high-grade dysplasia and carcinoma.? B.? Colon, cecal polyp:? Tubular adenoma, likely excised; negative for high- grade dysplasia and carcinoma. XR LUMBAR AND THORACIC 12/13/21? FINDINGS: Thoracic spine: There is normal thoracic kyphosis. The vertebral heights, alignment and disc heights are normal. No visible acute fracture, dislocation or subluxation seen. The paravertebral soft tissues are normal. Lumbar spine: There is normal lumbar lordosis. The vertebral heights, alignment and disc heights are normal. There is no visible acute fracture, dislocation or subluxation. There is mild right para midline spondylosis L2-L3 and L3-L4 disc levels. The SI joints are symmetrical. ? XR/XR lumbar spine 2-3V IMPRESSION: Mild right para midline L2-L3 and L3-L4 spondylosis. No visible acute fracture or dislocation seen in lumbar spine. ? Unremarkable dorsal spine exam. BARIUM SWALLOW 12/07/21 1FINDINGS: The swallowing mechanism is normal. No aspiration or penetration is seen. There is gastroesophageal reflux. There is mucosal irregularity of the esophagus suggestive of mild esophagitis. No mass or stricture is seen. No hernia is seen. Barium tablet passed freely into the stomach. FL/FL barium swallow IMPRESSION: Gastroesophageal reflux and mild esophagitis. Assessment & Plan Assessment & Plan (1) Tubular adenoma of colon: Comment: 2022 scope= 2 TA is repeat in 5 years Code(s): D12.6 - Benign neoplasm of colon, unspecified Plan: He did not realize I ordered labs and he says he will go for the liver panel and the PT INR today. he tolerated the procedure well. The procedure was well tolerated. The results were explained and the patient is agreeable to the follow-up interval as stated. The bowel pattern has returned to normal. Education was provided to tell any 1st degree relatives about their findings to be sure that they are screened by age 45. Educated that they will be put on a recall list when it is time for their repeat scope but should they move out of state or away from the hospital they will need to remember along with their primary to repeat the procedure in a timely fashion to avoid any adverse complications. Reviewed the x-rays any does have lumbar spondylosis that could be causing some radiation into the abdomen. The thoracic spine appears to be fairly normal. Review of the barium swallow does show GERD but no other severe abnormality.. He continues to have bleeding and what sounds like rectal prolapse as he describes my butt comes out. Start omeprazole for GERD and trial of bentyl 20mg bid. He is eating more fiber as recommended by the endoscopist. He has a weird feeling when he has the dysphagia of dizziness and near synocpe, this also happens when he goes under shower water and when he pulls his shirt off over his head. He father had similar sx. This sounds like it might be a vasovagal reaction. Proctosol cream for now seems to have resolved the rectal bleeding. ROV 6 weeks. (2) Dysphagia: Code(s): R13.10 - Dysphagia, unspecified (3) GERD (gastroesophageal reflux disease): Code(s): K21.9 - Gastro-esophageal reflux disease without esophagitis (4) Chronic low back pain: Code(s): M54.50 - Low back pain, unspecified; G89.29 - Other chronic pain (5) Chronic bilateral thoracic back pain: Code(s): M54.6 - Pain in thoracic spine; G89.29 - Other chronic pain (6) Lumbar spondylosis: Code(s): M47.816 - Spondylosis without myelopathy or radiculopathy, lumbar region (7) Rectal bleeding: Code(s): K62.5 - Hemorrhage of anus and rectum Orders: Referrals Pain Management Referral M54.50 - Low back pain, unspecified, G89.29 - Other chronic pain, M54.6 - Pain in thoracic spine Medications: New omeprazole 20 mg PO DAILY 30 caps 3RF 30 days K21.9 - Gastro-esophageal reflux disease without esophagitis dicyclomine 20 mg PO BID 60 tabs 3RF 30 days Coding Level of Care Code Est Pt Level 4 (07511) Diagnoses Tubular adenoma of colon D12.6 Dysphagia R13.10 GERD (gastroesophageal reflux disease) K21.9 Chronic low back pain M54.50; G89.29 Chronic bilateral thoracic back pain M54.6; G89.29 Lumbar spondylosis M47.816 Rectal bleeding K62.5
[2022-10-22 08:47] VITALS: BP 149/87; PULSE 65; BMI 27.0
== END 2022-10-22 09:22 | disposition home or self-care (01) ==
PROVIDERS: PCP Registered Nurse; Visit Provider Nurse Practitioner
DX: D12.6 Benign neoplasm of colon, unspecified (principal); R13.10 Dysphagia, unspecified; K21.9 Gastro-esophageal reflux disease without esophagitis; M54.50 Low back pain, unspecified; G89.29 Other chronic pain; M54.6 Pain in thoracic spine; M47.816 Spondylosis without myelopathy or radiculopathy, lumbar region; K62.5 Hemorrhage of anus and rectum
CPT/HCPCS: 99214

== ENCOUNTER → 2022-10-22 08:40 | Outpatient (BNVA) | payer MEDICAID, SELFPAY | PROVIDERS: PCP Registered Nurse; Visit Provider Nurse Practitioner | DX: D12.0 Benign neoplasm of cecum (principal); D12.2 Benign neoplasm of ascending colon; K64.8 Other hemorrhoids; R13.10 Dysphagia, unspecified; K21.9 Gastro-esophageal reflux disease without esophagitis; G89.29 Other chronic pain; M54.50 Low back pain, unspecified; M54.6 Pain in thoracic spine; M47.816 Spondylosis without myelopathy or radiculopathy, lumbar region; Z98.890 Other specified postprocedural states | CPT/HCPCS: 99212 ==

== ENCOUNTER 2022-10-28 08:10 | Emergency (ER) | payer MEDICAID, SELFPAY ==
--- NOTE | ~2022-10-28 | MR_ITS ---
EXAMINATION: MR LUMBAR SPINE WITHOUT AND WITH CONTRAST CLINICAL INFORMATION: Lumbar midline pain. Elevated white blood cell count. Numbness. Rule out abscess. COMPARISON: None available. TECHNIQUE: MRI of the lumbar spine was obtained using routine sequences with and without contrast. Intravenous contrast: Gadavist 7.5 mL. FINDINGS: VERTEBRAL BODIES AND PARASPINAL STRUCTURES: The marrow signal is within normal limits. There is mild disc space narrowing with reduced intradiscal signal at the L4-L5 and L5-S1 levels. Mild posterior subluxation visible at the L4-L5 level. No compression fractures. No soft tissue fluid collections are seen. No marrow or soft tissue edema or pathologic enhancement identified. Small intraosseous hemangiomas visible in the L1 and L3 vertebral bodies. The paraspinal soft tissues appear normal. Left-sided colonic diverticulosis visible. CONUS MEDULLARIS AND CAUDA EQUINE: The distal cord, conus tip, and cauda equina nerve roots are normal. No pathologic intradural enhancement identified. The imaged bony pelvis appears normal. The retroperitoneal soft tissues appear normal. SPINAL LEVELS: L1-L2: Small left paracentral disc protrusion without central canal stenosis or foraminal narrowing. L2-L3: Mild disc bulge and right foraminal disc protrusion compressing the exiting right L2 nerve root with mild right foraminal encroachment. L3-L4: Mild diffuse disc bulge and right foraminal/extraforaminal disc protrusion resulting in mass effect upon the exiting right L3 nerve root with [id number] right foraminal encroachment. No central canal stenosis. L4-L5: Mild posterior subluxation and loss of disc height with a diffuse disc bulge and mild facet arthropathy. No central canal stenosis. Left foraminal disc protrusion and endplate spurring mildly impresses upon the exiting left L4 nerve root. L5-S1: Disc degeneration and broad-based disc bulge with mild facet arthropathy. No central canal stenosis. Mild left foraminal narrowing. Shallow, broad-based right foraminal/extraforaminal disc protrusion and endplate spurring impress upon the exiting right L5 nerve root with moderate right foraminal encroachment. MR/MR lumbar spine wo/w con IMPRESSION: 1. Right foraminal disc protrusion at the L2-L3 level compressing the right L2 nerve root. 2. Right foraminal/extraforaminal disc protrusion at the L3-L4 level with mass effect upon the right L3 nerve root. 3. Left foraminal disc protrusion and endplate spurring at the L4-L5 level mildly impressing upon the exiting left L4 nerve root. 4. Shallow, broad-based right foraminal/extraforaminal disc protrusion and endplate spurring at the L5-S1 level impressing upon the right L5 nerve root with moderate right foraminal encroachment. 5. No imaging findings suspicious for discitis/osteomyelitis. No suspicious epidural soft tissue enhancement or fluid collection.
--- NOTE | ~2022-10-28 | XR_ITS ---
EXAMINATION: XR CHEST CLINICAL INFORMATION: Leukocytosis shortness of breath back pain COMPARISON: Thoracic spine radiograph from 12/07/2021, chest radiograph from 07/10/2021 TECHNIQUE: Frontal view of the chest was obtained. FINDINGS: No focal consolidation. No pneumothorax. Trachea is midline. Mediastinal silhouette is not enlarged. No large pleural effusion. Osseous structures are intact. Soft tissues are unremarkable. XR/XR chest 1V IMPRESSION: No acute cardiopulmonary process.
[2022-10-28 08:12] VITALS: BP 143/101; PULSE 77; RESP 16; TEMP 37; O2SAT 97; BMI 27.2
[2022-10-28 08:19] VITALS: BP 166/101; PULSE 70; RESP 18; O2SAT 93
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
--- NOTE | 2022-10-28 08:28 | ED.BACK ---
HPI - Back Pain/Injury General Chief Complaint: Back Pain/Injury Stated Complaint: back pain Time Seen by Provider: 10/28/22 08:20 Source: patient Mode of arrival: ambulatory Limitations: no limitations History of Present Illness HPI Narrative: This is a 47-year-old male history of hepatitis-C, smoker, depression, GERD, tubular adenoma of the colon, dysphagia presenting to the emergency department complaints of lower back pain bilaterally, worse in the middle, for the past 2 weeks, not improving, patient reports 2 weeks ago he had a colonoscopy and he is not sure if this pertains, he says he has had the back pain ever since. Reports the pain originates in the midline and radiates outwards and goes down his left leg, reports a/c fatigue and malaise. . He denies saddle paresthesia, numbness, fevers, chills, chest pain, shortness of breath, nausea, vomiting, abdominal pain, weakness Patient was ambulatory into room from waiting room. Although nursing note reports the patient said weakness into legs patient denies weakness to me. Related Data Home Medications Medication Instructions Recorded Confirmed spironolactone 25 mg tablet 25 mg PO QAM 10/22/22 spironolactone 50 mg tablet 50 mg PO DAILY 10/22/22 Previous Rx's Medication Instructions Recorded amlodipine 5 mg-benazepril 10 mg 1 cap PO DAILY #30 caps 07/08/21 capsule hydrocortisone 2.5 % topical cream 1 appl [place] BID hemorrhoids #30 grams 10/31/21 with perineal applicator (Proctosol HC) dicyclomine 20 mg tablet 20 mg PO BID 30 days #60 tabs 10/22/22 omeprazole 20 mg capsule,delayed 20 mg PO DAILY 30 days #30 caps 10/22/22 release cyclobenzaprine 10 mg tablet 10 mg PO BEDTIME PRN muscle spasm 10/28/22 #7 tabs ketorolac 10 mg tablet 10 mg PO TID PRN pain 5 days #15 10/28/22 tabs lidocaine 5 % topical patch 1 patch topical DAILY PRN pain #15 10/28/22 ea morphine 15 mg immediate release 15 mg PO Q6H PRN pain 5 days #10 10/28/22 tablet tabs Allergies Allergy/AdvReac Type Severity Reaction Status Date / Time No Known Allergies Allergy Verified 10/22/22 08:50 [No Known Allergies*] Review of Systems Review of Systems: Constitutional : No Weight loss, No Fever, No Chills, ENT/Mouth : No Hearing loss, No Ear Pain, No Nasal Congestion, No Sinus Pain, No Hoarseness, No sore throat, No Rhinorrhea, No Swallowing Difficulty Cardiovascular : No Chest Pain, No SOB Respiratory : No Cough, No Dyspnea Gastrointestinal : No Nausea, No Vomiting, No Diarrhea, No abdominal Pain, No Hematochezia, No Melena Genitourinary : No Dysuria, No Urinary Frequency, No Hematuria, No Urinary Incontinence, Musculoskeletal : positive back pain Skin : No Skin Lesions, No rash Neuro : No Weakness, No Numbness, No Paresthesias, no loss of bowel or bladder incontinence, no saddle anesthesia Yes all other systems are reviewed and are negative [facility] Past Medical History Attestation statement: The following information was validated with the patient. Source: old records reviewed and nursing notes reviewed Medical History Hepatitis C Hypertension Opioid abuse Testicular torsion Surgical History H/O colonoscopy History of orchiectomy S/P tendon repair Social History Social History Alcohol intake: never Patient Tobacco Use Status: Current everyday Tobacco user Tobacco use type: Cigarette Cigarettes Per Day: 10 Smoked in Last 30 Days: Yes Substance Use Type: Marijuana Advance Directives: No Physical Exam Vital Signs: Vital Signs: Last Vital Signs Temp 98.6 F 10/28/22 08:12 Pulse 70 10/28/22 08:19 Resp 18 10/28/22 08:19 BP 166/101 H 10/28/22 08:19 Pulse Ox 93 10/28/22 08:19 O2 Del Method Room Air 10/28/22 08:19 BMI result Body Mass Index 27.2 HTN noted likley d/t pain Appearance: Alert.? Oriented X3.? No acute distress.? Head: Normocephalic, atraumatic, no step-offs or deformities Eyes: Pupils equal, round and reactive to light.? CVS: Normal heart rate and rhythm.? Pulses normal.? Respiratory: No respiratory distress.? Breath sounds normal.? Abdomen: Soft and nontender.? Skin: Skin warm and dry.? Normal skin color.? Normal skin turgor.? Extremities: No lower extremity edema.? No calf ttp. 5/5 strength to bilateral upper and lower extremities + patellar reflexes, achilies 2+ equal and b/l. Back: Exquisite midline spinous tenderness overlying L2/3 without deformity or step off, no paraspinal tenderness, no C-spine tenderness, full range of motion. Ambulating with steady gait however uncomfortable. Neuro: Oriented X 3.? No motor deficit.? No sensory deficit. CN 2-12 intact. No saddle paresthesias. Course Reevaluation(s) Reevaluation #1: CBC with leukocytosis 19.2, no left shift, I suspect that this is likely secondary to reactivity/stress reaction from pain patient is rocking back and forth in pain. Due to patient's history, physical exam an MRI was ordered to rule out epidural abscess as patient does have an elevated white blood cell count. Chemistry with no acute findings requiring intervention. Normal CRP. Normal ESR. UA without infection. Time: 13:03 Reevaluation #2: MR lumbar spine wo/w con IMPRESSION: 1. Right foraminal disc protrusion at the L2-L3 level compressing the right L2 nerve root. 2. Right foraminal/extraforaminal disc protrusion at the L3-L4 level with mass effect upon the right L3 nerve root. 3. Left foraminal disc protrusion and endplate spurring at the L4-L5 level mildly impressing upon the exiting left L4 nerve root. 4. Shallow, broad-based right foraminal/extraforaminal disc protrusion and endplate spurring at the L5-S1 level impressing upon the right L5 nerve root with moderate right foraminal encroachment. 5. No imaging findings suspicious for discitis/osteomyelitis. No suspicious epidural soft tissue enhancement or fluid collection. ? Lumbar MRI negative for withdrawal abscess. Discussed this case with my attending Dr. Reeys who recommended that I order a chest x-ray due to patient's leukocytosis to 19.2. This is likely reactive to pain. Patient has no signs of cellulitis on exam. Urine is clean. Chest x-ray with no acute findings, leukocytosis likely reactive. Patient is still in pain will give Dilaudid for pain control and then re-evaluate patient. Time: 12:37 Reevaluation #3: Patient ambulating around the department, reports pain is much improved. Will discharge him home with morphine, Toradol. As well as cyclobenzaprine Lidoderm patches. Educated patient on diagnosis and treatment plan, answered all question, patient verbalizes understanding. At this time patient will be discharged home, advised to return with new or worsening symptoms. Educated on worrisome signs and symptoms and when to return. At this time I feel comfortable discharge home. Time: 15:00 Medications Administered Discontinued Medications Generic Name Dose Route Start Last Admin Trade Name Diony PRN Reason Stop Dose Admin Gadobutrol 7.5 ml 10/28/22 11:16 10/28/22 11:16 Gadobutrol 7.5 Ml Vial IVPUSH 10/28/22 11:17 7.5 ml ONCE ONE Administration Ketorolac Tromethamine 30 mg 10/28/22 10:25 10/28/22 11:19 Ketorolac Tromethamine 15 Mg/Ml Vial IVPUSH 10/28/22 10:26 30 mg ONCE ONE Administration Ketorolac Tromethamine 30 mg 10/28/22 13:14 10/28/22 13:19 Ketorolac Tromethamine 15 Mg/Ml Vial IVPUSH 10/28/22 13:15 30 mg ONCE ONE Administration Lidocaine 1 patch 10/28/22 10:25 10/28/22 11:19 Lidocaine 4 % Patch Adh..Patch TRANSDERMA 10/28/22 10:26 1 patch ONCE ONE Administration Protocol Morphine Sulfate 4 mg 10/28/22 09:21 10/28/22 09:38 Morphine Sulfate 4 Mg/Ml Cartridge IVPUSH 10/28/22 09:22 4 mg ONCE ONE Administration Protocol Medical Decision Making Medical Decision Making [facility] Narrative: 0918 47 yo male with worsening low back pain x3 wks Exam notable for Exquisite midline spinous tenderness to L2/L3 without step offs or deformity. Ambulating with steady gait. Afebrile. Patient lying uncomfortably in bed. Clinical concern for msk sprain/strain vs spinal stenosis vs disc herniation vs epidural abscess due to remote history of IVDU and midline spinous tenderness .Unlikely cauda equina, cord compression. I do not suspect guillian barre, normal reflexes no ascending weakness. Plan: pain control, basic labs, MRI spine Differential Diagnosis Differential Diagnoses: The differential diagnosis associated with the presentation includes Clinical concern for msk sprain/strain vs spinal stenosis vs disc herniation vs epidural abscess due to remote history of IVDU and midline spinous tenderness .Unlikely cauda equina, cord compression. I do not suspect guillian barre, normal reflexes no ascending weakness. Admission/Observation Consideration of admission/observation: Escalation of care including admission/observation considered Lab Data MDM Lab Attestation statement: I reviewed the patient's lab results. 10/28/22 08:49 10/28/22 08:49 Labs: Lab Results 10/28/22 10/28/22 10/28/22 Range/Units 08:49 08:49 08:49 WBC 19.2 H (4.8-10.8) X10*3/uL RBC 4.86 (4.60-5.80) X10*6/uL Hgb 13.1 L (14.0-18.0) g/dl Hct 39.0 L (42.0-52.0) % MCV 80.2 (80.0-98.0) fL MCH 27.0 (27.0-33.0) pg MCHC 33.6 (31.0-36.0) g/dl RDW 12.5 (11.0-16.0) % Plt Count 233 (160-400) X10*3/uL MPV 10.9 (9.4-12.4) fL Immature Gran % (Auto) 0.4 (0.0-0.4) % Neut % (Auto) 70.7 (45-73) % Lymph % (Auto) 20.5 (20-40) % [place] % (Auto) 5.7 (2-11) % Eos % (Auto) 2.3 (0-4) % Baso % (Auto) 0.4 (0-2) % Lymph # (Auto) 3.9 (1.2-4.9) X10*3/uL [place] # (Auto) 1.1 (0.1-1.2) X10*3/uL Eos # (Auto) 0.4 (0.0-0.4) X10*3/uL Baso # (Auto) 0.1 (0.0-0.2) X10*3/uL Abs Immat Gran (auto) 0.07 H (0.00-0.03) X10*3/uL Absolute Neuts (auto) 13.6 H (2.0-8.3) x10*3/uL Absolute Nucleated RBC 0.000 (0.0-0.012) X10*3/uL Nucleated RBC % (auto) 0.0 (0.0-0.2) /100WBC ESR 14 (0-15) MM/HR Sodium 138 (135-145) mmol/L Potassium 4.2 (3.3-5.1) mmol/L Chloride 104 (96-108) mmol/L Carbon Dioxide 25 (22-29) mmol/L Anion Gap 13 (12-20) BUN 12 (9-16) mg/dL Creatinine 1.04 (0.5-1.4) mg/dL Estim Creat Clear Calc 78.3 Estimated GFR > 60 Random Glucose 102 (60-115) mg/dL Calcium 10.2 (8.4-10.2) mg/dL Magnesium 2.0 (1.6-2.6) mg/dL Total Bilirubin 0.4 (0.0-1.0) mg/dL AST 17 (5-37) U/L ALT 12 (0-40) U/L Alkaline Phosphatase 66 (39-117) U/L C-Reactive Protein 0.17 (< or = 0.50) mg/dL Total Protein 8.1 H (6.5-8.0) g/dL Albumin 4.6 (3.5-5.0) g/dL Urine Color Urine Appearance Urine pH (5.0-9.0) Ur Specific [place] (1.005-1.025) Urine Protein (Neg-Trace) mg/dL Urine Glucose (UA) (Negative) mg/dL Urine Ketones (Negative) mg/dL Urine Blood (Negative) Urine Nitrite (Negative) Ur Leukocyte Esterase (Negative) 10/28/22 Range/Units 09:55 WBC (4.8-10.8) X10*3/uL RBC (4.60-5.80) X10*6/uL Hgb (14.0-18.0) g/dl Hct (42.0-52.0) % MCV (80.0-98.0) fL MCH (27.0-33.0) pg MCHC (31.0-36.0) g/dl RDW (11.0-16.0) % Plt Count (160-400) X10*3/uL MPV (9.4-12.4) fL Immature Gran % (Auto) (0.0-0.4) % Neut % (Auto) (45-73) % Lymph % (Auto) (20-40) % [place] % (Auto) (2-11) % Eos % (Auto) (0-4) % Baso % (Auto) (0-2) % Lymph # (Auto) (1.2-4.9) X10*3/uL [place] # (Auto) (0.1-1.2) X10*3/uL Eos # (Auto) (0.0-0.4) X10*3/uL Baso # (Auto) (0.0-0.2) X10*3/uL Abs Immat Gran (auto) (0.00-0.03) X10*3/uL Absolute Neuts (auto) (2.0-8.3) x10*3/uL Absolute Nucleated RBC (0.0-0.012) X10*3/uL Nucleated RBC % (auto) (0.0-0.2) /100WBC ESR (0-15) MM/HR Sodium (135-145) mmol/L Potassium (3.3-5.1) mmol/L Chloride (96-108) mmol/L Carbon Dioxide (22-29) mmol/L Anion Gap (12-20) BUN (9-16) mg/dL Creatinine (0.5-1.4) mg/dL Estim Creat Clear Calc Estimated GFR Random Glucose (60-115) mg/dL Calcium (8.4-10.2) mg/dL Magnesium (1.6-2.6) mg/dL Total Bilirubin (0.0-1.0) mg/dL AST (5-37) U/L ALT (0-40) U/L Alkaline Phosphatase (39-117) U/L C-Reactive Protein (< or = 0.50) mg/dL Total Protein (6.5-8.0) g/dL Albumin (3.5-5.0) g/dL Urine Color Yellow Urine Appearance Clear Urine pH 7.5 (5.0-9.0) Ur Specific [place] <= 1.005 (1.005-1.025) Urine Protein Negative (Neg-Trace) mg/dL Urine Glucose (UA) Negative (Negative) mg/dL Urine Ketones Negative (Negative) mg/dL Urine Blood Negative (Negative) Urine Nitrite Negative (Negative) Ur Leukocyte Esterase Negative (Negative) Independent Interpretation I performed an independent interpretation of an: Plain X-Ray ( XR/XR chest 1V IMPRESSION: No acute cardiopulmonary process. ) Interpretation: MR/MR lumbar spine wo/w con IMPRESSION: 1. Right foraminal disc protrusion at the L2-L3 level compressing the right L2 nerve root. 2. Right foraminal/extraforaminal disc protrusion at the L3-L4 level with mass effect upon the right L3 nerve root. 3. Left foraminal disc protrusion and endplate spurring at the L4-L5 level mildly impressing upon the exiting left L4 nerve root. 4. Shallow, broad-based right foraminal/extraforaminal disc protrusion and endplate spurring at the L5-S1 level impressing upon the right L5 nerve root with moderate right foraminal encroachment. 5. No imaging findings suspicious for discitis/osteomyelitis. No suspicious epidural soft tissue enhancement or fluid collection. ? Radiology Impression Discussion of test interpretation with radiology: I have reviewed the radiologist's reading. Independent Historian Clinical information obtained from an independent historian. History obtained from or confirmed by: Parent External Record Review External record reviewed: Inpatient record Core Measures AMI core measures followed: Yes Measure exclusions: not indicated Critical Care Time Critical Care Time Critical Care Time: Yes Total Critical Care Time: 45 Attestation: I attest to this time spent taking care of the patient, obtaining history, physical, reviewing labs, imaging, speaking to my attending, speaking to specialist. Discharge Plan Discharge Clinical Impression: Lumbar disc herniation Patient Disposition: Home, Self-Care Instructions: Acute Low Back Pain (ED) Additional Instructions: Take your medications as prescribed. If you were prescribed antibiotics today, it is important that you take your medication to their entirety, do not skip any doses, do not finish them early. Follow-up with your primary care provider this week. Return to the emergency department with new or worsening symptoms. Such as fevers, chills, chest pain, shortness of breath, nausea, vomiting, dizziness, headache, vision changes, lethargy In case of emergency call 911 Toradol has been sent to your pharmacy, you tolerated this well in the department. Please take this as prescribed do not take this with ibuprofen, or other NSAIDs, do not mix this with alcohol. Side effects of this medication including increased risk for bleeding and possible kidney injury. A narcotic has been sent to your pharmacy please take this as prescribed. Do not take more than the prescribed dose. Narcotic medications can cause addiction. Please do not mix them with alcohol. Do not take them while driving or operating machinery. Do not take them with any other narcotics. Do not share them with friends or family. They can cause constipation. Take them only for severe pain. XR/XR chest 1V IMPRESSION: No acute cardiopulmonary process. ? MR/MR lumbar spine wo/w con IMPRESSION: 1. Right foraminal disc protrusion at the L2-L3 level compressing the right L2 nerve root. 2. Right foraminal/extraforaminal disc protrusion at the L3-L4 level with mass effect upon the right L3 nerve root. 3. Left foraminal disc protrusion and endplate spurring at the L4-L5 level mildly impressing upon the exiting left L4 nerve root. 4. Shallow, broad-based right foraminal/extraforaminal disc protrusion and endplate spurring at the L5-S1 level impressing upon the right L5 nerve root with moderate right foraminal encroachment. 5. No imaging findings suspicious for discitis/osteomyelitis. No suspicious epidural soft tissue enhancement or fluid collection. ? Prescriptions: New cyclobenzaprine 10 mg tablet 10 mg PO BEDTIME PRN (Reason: muscle spasm) Qty: 7 0RF ketorolac 10 mg tablet 10 mg PO TID PRN (Reason: pain) 5 Days Qty: 15 0RF lidocaine 5 % adhesive patch,medicated 1 patch topical DAILY PRN (Reason: pain) Qty: 15 0RF Rx Instructions: leave on most painful area for up to 12 hrs morphine 15 mg tablet 15 mg PO Q6H PRN (Reason: pain) 5 Days Qty: 10 0RF Rx Instructions: Partial Fill upon patient request. No Action amlodipine-benazepril 5-10 mg capsule 1 cap PO DAILY Qty: 30 0RF hydrocortisone [Proctosol HC] 2.5 % cream with perineal applicator 1 appl [place] BID Qty: 30 3RF spironolactone 50 mg tablet 50 mg PO DAILY spironolactone 25 mg tablet 25 mg PO QAM omeprazole 20 mg capsule,delayed release(DR/EC) 20 mg PO DAILY 30 Days Qty: 30 3RF dicyclomine 20 mg tablet 20 mg PO BID 30 Days Qty: 60 3RF Referrals: [facility] [Provider Group] - 1 week Ford Rdz MD, PhD [Physician] - 1 week Maria D Chapin FNP [Primary Care Provider] - 2 days Stand Alone Forms: Work/School Release
[2022-10-28 08:55] LABS: MANUAL DIFF FLAG NO
[2022-10-28 08:56] LABS: Basophils Absolute Auto 0.1 X10*3/uL (0.0-0.2); Basophils Percent Auto 0.4 % (0-2); Eosinophils Absolute Auto 0.4 X10*3/uL (0.0-0.4); Eosinophils Percent Auto 2.3 % (0-4); Hemoglobin 13.1 g/dl (14.0-18.0); Imm Gran Abs Auto 0.07 X10*3/uL (0.00-0.03); Imm Gran Pct Auto 0.4 % (0.0-0.4); Lymphocytes Absolute Auto 3.9 X10*3/uL (1.2-4.9); Lymphocytes Percent Auto 20.5 % (20-40); Mean Corpuscular HGB Conc 33.6 g/dl (31.0-36.0); Mean Corpuscular Volume 80.2 fL (80.0-98.0); Mean Platelet Volume 10.9 fL (9.4-12.4); Monocytes Absolute Auto 1.1 X10*3/uL (0.1-1.2); Monocytes Percent Auto 5.7 % (2-11); Neutrophils Absolute Auto 13.6 x10*3/uL (2.0-8.3); Neutrophils Percent Auto 70.7 % (45-73); Platelet Count 233 X10*3/uL (160-400); Red Blood Count 4.86 X10*6/uL (4.60-5.80); Red Cell Distribution Width 12.5 % (11.0-16.0); White Blood Count 19.2 X10*3/uL (4.8-10.8)
[2022-10-28 09:17] LABS: Alanine Aminotransferase 12 U/L (0-40); Albumin Level 4.6 g/dL (3.5-5.0); Alkaline Phosphatase 66 U/L (39-117); Anion Gap 13 (12-20); Aspartate Amino Transferase 17 U/L (5-37); Bilirubin Total 0.4 mg/dL (0.0-1.0); Blood Urea Nitrogen 12 mg/dL (9-16); C Reactive Protein 0.17 mg/dL (< or = 0.50); Calcium 10.2 mg/dL (8.4-10.2); Carbon Dioxide 25 mmol/L (22-29); Chloride 104 mmol/L (96-108); Creatinine Clr Calc Pharmacy 78.3; Estimated Glomerular Filt Rate > 60; Glucose Random 102 mg/dL (60-115); Potassium 4.2 mmol/L (3.3-5.1); Sodium 138 mmol/L (135-145); Total Protein 8.1 g/dL (6.5-8.0)
[2022-10-28 09:37] LABS: Erythrocyte Sedimentation Rate 14 MM/HR (0-15)
[2022-10-28] MEDS: Morphine Sulfate 4 MG/ML CARTRIDGE IVPUSH (09:38)
--- NOTE | 2022-10-28 10:01 | PC.NURSE ---
MRI screening form completed and faxed to MRI
[2022-10-28 10:13] LABS: Appearance Urine Clear; Color Urine Yellow; Glucose Urine UA Negative (Negative); Leukocyte Esterase Urine Negative (Negative); Nitrite Urine Negative (Negative); PH 7.5 (5.0-9.0); Specific Gravity - Urine <= 1.005 (1.005-1.025); Urine Blood Negative (Negative); Urine Ketones Negative (Negative); Urine Protein Negative (Neg-Trace)
--- NOTE | 2022-10-28 10:44 | PC.NURSE ---
Patient at MRI
[2022-10-28] MEDS: gadobutroL 7.5 ML VIAL IVPUSH (11:16)
[2022-10-28] MEDS: Lidocaine 4 % Patch ADH..PATCH 1 PATCH TRANSDERMA (11:19)
[2022-10-28] MEDS: Ketorolac Tromethamine 15 MG/ML VIAL 30 MG IVPUSH ×2 (11:19→13:19)
[2022-10-28] MEDS: amLODIPine Besylate 5 MG TABLET PO (15:10)
--- NOTE | 2022-10-28 15:14 | PC.NURSE ---
Discharge plan reviewed with patient and who verbalized understanding
== END 2022-10-28 15:22 | disposition home or self-care (01) ==
PROVIDERS: Physician Assistant; Emergency Provider Emergency Medicine; PCP Registered Nurse
DX: M51.26 Other intervertebral disc displacement, lumbar region (principal); R06.02 Shortness of breath; F17.210 Nicotine dependence, cigarettes, uncomplicated; Z71.6 Tobacco abuse counseling; Z79.899 Other long term (current) drug therapy
CPT/HCPCS: 36415; 71045; 72158; 80053; 81003; 83735; 85025; 85652; 86140; 96374; 96375; 96376; 99284; A9585; J1885; J2270

== ENCOUNTER 2022-11-11 11:47 | Emergency (ER) | payer MEDICAID, SELFPAY ==
[2022-11-11 12:21] VITALS: BP 145/97; PULSE 111; RESP 18; TEMP 36; O2SAT 99; BMI 26.5
--- NOTE | 2022-11-11 12:26 | ED_ITS ---
HPI - Dental/Oral General Chief complaint: Dental/Oral Stated complaint: Dental pain Time Seen by Provider: 11/11/22 13:44 Source: patient and family Mode of arrival: ambulatory Limitations: no limitations History of Present Illness HPI Narrative: 47 yo male presenting for medical clearance prior to dental extractions. His surgeon is requesting clearance prior extractions, potentially to be done today. he has history of poor dental care with multiple caries and decaying teeth. has been on abx since last week with ongoing pain in multiple areas. No facial swelling, trisumus, fevers, bleeding. MD Complaint: tooth pain Onset (ago): week(s) Duration: worsening Severity: severe Relieving factors: nothing Exacerbating factors: chewing Context: history of dental caries and poor dental care Treatment prior to arrival: oral analgesic Related Data Home Medications Medication Instructions Recorded Confirmed spironolactone 25 mg tablet 25 mg PO QAM 10/22/22 spironolactone 50 mg tablet 50 mg PO DAILY 10/22/22 Previous Rx's Medication Instructions Recorded amlodipine 5 mg-benazepril 10 mg 1 cap PO DAILY #30 caps 07/08/21 capsule hydrocortisone 2.5 % topical cream 1 appl [place] BID hemorrhoids #30 grams 10/31/21 with perineal applicator (Proctosol HC) dicyclomine 20 mg tablet 20 mg PO BID 30 days #60 tabs 10/22/22 omeprazole 20 mg capsule,delayed 20 mg PO DAILY 30 days #30 caps 10/22/22 release cyclobenzaprine 10 mg tablet 10 mg PO BEDTIME PRN muscle spasm 10/28/22 #7 tabs ketorolac 10 mg tablet 10 mg PO TID PRN pain 5 days #15 10/28/22 tabs lidocaine 5 % topical patch 1 patch topical DAILY PRN pain #15 10/28/22 ea morphine 15 mg immediate release 15 mg PO Q6H PRN pain 5 days #10 10/28/22 tablet tabs Allergies Allergy/AdvReac Type Severity Reaction Status Date / Time No Known Allergies Allergy Verified 11/11/22 12:21 [No Known Allergies*] Review of Systems 2 Review of Systems: Yes all other systems are reviewed and are negative PMFSH Past Medical History Medical History Hepatitis C Hypertension Opioid abuse Testicular torsion Surgical History H/O colonoscopy History of orchiectomy S/P tendon repair Social History Social History Alcohol intake: never Patient Tobacco Use Status: Current everyday Tobacco user Tobacco use type: Cigarette Cigarettes Per Day: 10 Substance Use Type: Marijuana Advance Directives: No Advance Directives Information Provided: Yes Physical Exam 2 Vital Signs: Vital Signs: Last Vital Signs Temp 96.8 F 11/11/22 12:21 Pulse 111 H 11/11/22 12:21 Resp 18 11/11/22 12:21 BP 145/97 H 11/11/22 12:21 Pulse Ox 99 11/11/22 12:21 O2 Del Method Room Air 11/11/22 12:21 BMI result Body Mass Index 26.5 Appearance: Alert. Oriented X3. No acute distress. Head/face: normocephalic, atraumatic. face is symmetric Eyes: Pupils equal, round and reactive to light. ENT: Pharynx normal. No tonsillar swelling or exudate. Neck: Normal inspection. Neck supple. no LAD, no anterior neck swelling CVS: Normal heart rate and rhythm. Pulses normal. Respiratory: No respiratory distress. Breath sounds normal. Skin: Skin warm and dry. Normal skin color. Normal skin turgor. No rashes. Extremities: No lower extremity edema. No joint swelling. Neuro/psych: Oriented X 3. grossly normal, nonfocal Course Course Course Narrative: RME - 47 yo male with history of hepatitis C cirrhosis, HTN, depression, GERD who presents to the ER for medical clearance for full dental extraction. Labs for clearance Medical Decision Making Lab Data 11/11/22 12:41 11/11/22 12:40 Labs: Lab Results 11/11/22 11/11/22 Range/Units 12:40 12:41 WBC 11.9 H (4.8-10.8) X10*3/uL RBC 5.36 (4.60-5.80) X10*6/uL Hgb 14.0 (14.0-18.0) g/dl Hct 42.9 (42.0-52.0) % MCV 80.0 (80.0-98.0) fL MCH 26.1 L (27.0-33.0) pg MCHC 32.6 (31.0-36.0) g/dl RDW 12.4 (11.0-16.0) % Plt Count 288 (160-400) X10*3/uL MPV 10.5 (9.4-12.4) fL Immature Gran % (Auto) 0.3 (0.0-0.4) % Neut % (Auto) 64.4 (45-73) % Lymph % (Auto) 26.3 (20-40) % Mineral % (Auto) 6.1 (2-11) % Eos % (Auto) 2.2 (0-4) % Baso % (Auto) 0.7 (0-2) % Lymph # (Auto) 3.1 (1.2-4.9) X10*3/uL Mineral # (Auto) 0.7 (0.1-1.2) X10*3/uL Eos # (Auto) 0.3 (0.0-0.4) X10*3/uL Baso # (Auto) 0.1 (0.0-0.2) X10*3/uL Abs Immat Gran (auto) 0.04 H (0.00-0.03) X10*3/uL Absolute Neuts (auto) 7.6 (2.0-8.3) x10*3/uL Absolute Nucleated RBC 0.000 (0.0-0.012) X10*3/uL Nucleated RBC % (auto) 0.0 (0.0-0.2) /100WBC Sodium 137 (135-145) mmol/L Potassium 4.3 (3.3-5.1) mmol/L Chloride 103 (96-108) mmol/L Carbon Dioxide 24 (22-29) mmol/L Anion Gap 14 (12-20) BUN 12 (9-16) mg/dL Creatinine 1.14 (0.5-1.4) mg/dL Estim Creat Clear Calc 71.5 Estimated GFR > 60 Random Glucose 108 (60-115) mg/dL Calcium 10.8 H (8.4-10.2) mg/dL Magnesium 1.9 (1.6-2.6) mg/dL Total Bilirubin 0.6 (0.0-1.0) mg/dL Direct Bilirubin 0.2 (0.0-0.5) mg/dL AST 26 (5-37) U/L ALT 12 (0-40) U/L Alkaline Phosphatase 72 (39-117) U/L Total Protein 9.0 H (6.5-8.0) g/dL Albumin 5.0 (3.5-5.0) g/dL Discharge Plan Discharge Clinical Impression: Dental caries Patient Disposition: Home, Self-Care Instructions: Tooth Extraction (DC) Additional Instructions: you are medically cleared for dental procedures Prescriptions: No Action amlodipine-benazepril 5-10 mg capsule 1 cap PO DAILY Qty: 30 0RF cyclobenzaprine 10 mg tablet 10 mg PO BEDTIME PRN (Reason: muscle spasm) Qty: 7 0RF ketorolac 10 mg tablet 10 mg PO TID PRN (Reason: pain) 5 Days Qty: 15 0RF lidocaine 5 % adhesive patch,medicated 1 patch topical DAILY PRN (Reason: pain) Qty: 15 0RF Rx Instructions: leave on most painful area for up to 12 hrs morphine 15 mg tablet 15 mg PO Q6H PRN (Reason: pain) 5 Days Qty: 10 0RF Rx Instructions: Partial Fill upon patient request. hydrocortisone [Proctosol HC] 2.5 % cream with perineal applicator 1 appl [place] BID Qty: 30 3RF spironolactone 50 mg tablet 50 mg PO DAILY spironolactone 25 mg tablet 25 mg PO QAM omeprazole 20 mg capsule,delayed release(DR/EC) 20 mg PO DAILY 30 Days Qty: 30 3RF dicyclomine 20 mg tablet 20 mg PO BID 30 Days Qty: 60 3RF Interventions: ED Discharge Assessment Last Done: 11/11/22 13:47 Discharge Date/Time: 11/11/22 13:48
[2022-11-11 12:44] LABS: MANUAL DIFF FLAG NO
[2022-11-11 12:47] LABS: Basophils Absolute Auto 0.1 X10*3/uL (0.0-0.2); Basophils Percent Auto 0.7 % (0-2); Eosinophils Absolute Auto 0.3 X10*3/uL (0.0-0.4); Eosinophils Percent Auto 2.2 % (0-4); Hematocrit 42.9 % (42.0-52.0); Imm Gran Abs Auto 0.04 X10*3/uL (0.00-0.03); Imm Gran Pct Auto 0.3 % (0.0-0.4); Lymphocytes Absolute Auto 3.1 X10*3/uL (1.2-4.9); Lymphocytes Percent Auto 26.3 % (20-40); Mean Corpuscular HGB Conc 32.6 g/dl (31.0-36.0); Mean Corpuscular Hemoglobin 26.1 pg (27.0-33.0); Mean Platelet Volume 10.5 fL (9.4-12.4); Monocytes Absolute Auto 0.7 X10*3/uL (0.1-1.2); Monocytes Percent Auto 6.1 % (2-11); Neutrophils Absolute Auto 7.6 x10*3/uL (2.0-8.3); Neutrophils Percent Auto 64.4 % (45-73); Platelet Count 288 X10*3/uL (160-400); Red Blood Count 5.36 X10*6/uL (4.60-5.80); Red Cell Distribution Width 12.4 % (11.0-16.0); White Blood Count 11.9 X10*3/uL (4.8-10.8)
[2022-11-11 13:31] LABS: Alanine Aminotransferase 12 U/L (0-40); Alkaline Phosphatase 72 U/L (39-117); Anion Gap 14 (12-20); Aspartate Amino Transferase 26 U/L (5-37); Bilirubin Direct 0.2 mg/dL (0.0-0.5); Bilirubin Total 0.6 mg/dL (0.0-1.0); Blood Urea Nitrogen 12 mg/dL (9-16); Calcium 10.8 mg/dL (8.4-10.2); Carbon Dioxide 24 mmol/L (22-29); Chloride 103 mmol/L (96-108); Creatinine Clr Calc Pharmacy 71.5; Estimated Glomerular Filt Rate > 60; Glucose Random 108 mg/dL (60-115); Magnesium 1.9 mg/dL (1.6-2.6); Potassium 4.3 mmol/L (3.3-5.1); Sodium 137 mmol/L (135-145)
== END 2022-11-11 13:48 | disposition home or self-care (01) ==
PROVIDERS: Physician Assistant; Emergency Provider Emergency Medicine; PCP Registered Nurse
DX: K02.9 Dental caries, unspecified (principal); Z79.899 Other long term (current) drug therapy
CPT/HCPCS: 36415; 80048; 80076; 83735; 85025; 99282; 99283

== ENCOUNTER 2022-12-03 08:50 | Outpatient (AMB) | payer MEDICAID, SELFPAY ==
--- NOTE | 2022-12-03 08:58 | MHC.OFFVIS ---
Intake Vital Signs 12/03/22 09:02 Height 5 ft 6 in Weight 162 lb 4.163 oz BMI 26.2 BP 133/86 Blood Pressure Location Lt brachial Position Sitting Pulse 77 Intake Visit Reasons: 6 week follow up Intake Note: Patient presents to in office visit today in 6 weeks follow up of dysphagia. CC: Patient recently seen in the ER with back pain and was found to have a herniated disc. Patient reports constipation and rectal bleeding. 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 he tolerated the procedure well. The procedure was well tolerated. The results were explained and the patient is agreeable to the follow-up interval as stated. The bowel pattern has returned to normal. Education was provided to tell any 1st degree relatives about their findings to be sure that they are screened by age 45. Educated that they will be put on a recall list when it is time for their repeat scope but should they move out of state or away from the hospital they will need to remember along with their primary to repeat the procedure in a timely fashion to avoid any adverse complications. Reviewed the x-rays any does have lumbar spondylosis that could be causing some radiation into the abdomen. The thoracic spine appears to be fairly normal. Review of the barium swallow does show GERD but no other severe abnormality.. He continues to have bleeding and what sounds like rectal prolapse as he describes my butt comes out. Start omeprazole for GERD and trial of bentyl 20mg bid. He is eating more fiber as recommended by the endoscopist. He has a weird feeling when he has the dysphagia of dizziness and near synocpe, this also happens when he goes under shower water and when he pulls his shirt off over his head. He father had similar sx. This sounds like it might be a vasovagal reaction. Proctosol cream for now seems to have resolved the rectal bleeding. ROV 6 weeks. (2) Dysphagia: Code(s): R13.10 - Dysphagia, unspecified (3) GERD (gastroesophageal reflux disease): Code(s): K21.9 - Gastro-esophageal reflux disease without esophagitis (4) Chronic low back pain: Code(s): M54.50 - Low back pain, unspecified; G89.29 - Other chronic pain (5) Chronic bilateral thoracic back pain: Code(s): M54.6 - Pain in thoracic spine; G89.29 - Other chronic pain (6) Lumbar spondylosis: Code(s): M47.816 - Spondylosis without myelopathy or radiculopathy, lumbar region (7) Rectal bleeding: Code(s): K62.5 - Hemorrhage of anus and rectum Orders: Referrals Pain Management Re ferral M54.50 - Low back pain, unspecified, G89.29 - Other ch ronic pain, M54.6 - Pain in thoracic spine Medications: New omeprazole 20 mg PO DAILY 30 caps 3RF 30 days K21.9 - Gastro-eso phageal reflux dis ease without esoph agitis dicyclomine 20 mg PO BID 60 ta bs 3RF 30 days MRI OF LUMBAR SPINE 10/28/22 IMPRESSION: 1. Right foraminal disc protrusion at the L2-L3 level compressing the right L2 nerve root. 2. Right foraminal/extraforaminal disc protrusion at the L3-L4 level with mass effect upon the right L3 nerve root. 3. Left foraminal disc protrusion and endplate spurring at the L4-L5 level mildly impressing upon the exiting left L4 nerve root. 4. Shallow, broad-based right foraminal/extraforaminal disc protrusion and endplate spurring at the L5-S1 level impressing upon the right L5 nerve root with moderate right foraminal encroachment. 5. No imaging findings suspicious for discitis/osteomyelitis. No suspicious epidural soft tissue enhancement or fluid collection. TODAY'S VISIT He has had a rough run; he was in the ER for severe back pain with left sided sciatica and then also developed severe dental pain and could not eat well. He feels guilty because they had to give him morphine and he is a recovered heroin user for 10 years. He has appts with pain mgmt and has seen a dentist and had all of his upper teeth pulled. He will be getting dentures. He will be starting PT for his back. 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 This caused some more rectal bleeding. This has been intermittent. He continues to have bleeding and what sounds like rectal prolapse as he describes my butt comes out. He has the dicyclomine in the omeprazole and is taking it but it is hard for him to evaluate how much this is been helping with all of the things he has been undergoing and all of the different medicines and his body. However, he has not been having abdominal pain recently. He admits he also does better when he is adherent to his fiber therapy which is been difficult because of the dental issues. He struggles regularly with depression but he feels that this is well controlled and his mood is good at this time. He understands that he will be improving his health little by little stating ?I abused my body for many years I now I need to take time to take care of myself. ? ROV 8 weeks. [facility] Medical History Hepatitis C Testicular torsion Opioid abuse Hypertension Surgical History H/O colonoscopy S/P tendon repair History of orchiectomy Social History Alcohol intake: never Patient Tobacco Use Status: Current everyday Tobacco user Tobacco use type: Cigarette Cigarettes Per Day: 10 Substance Use Type: Marijuana Review of Systems Const Denies fatigue, Denies fever(s), Denies night sweats, Denies poor appetite and Denies weight loss ENT Reports Normal hearing present, Reports dental pain, Denies dysphagia, Denies hearing loss, Reports mouth pain, Denies odynophagia, Denies throat swelling and Denies tongue swelling Card Reports no additional complaints Resp Reports no additional complaints GI Denies abdominal pain, Denies melena, Denies bloating, Reports hematochezia, Reports constipation, Denies GI cramping, Denies dysphagia, Denies excessive flatus, Denies early satiety, Reports heartburn, Denies diarrhea, Denies nausea, Denies odynophagia, Denies vomiting and Denies hematemesis Musc Reports back pain and Reports radiating pain into limb Skin/Breast Denies pruritus, Denies lesions, Denies rash and Denies jaundice Neuro Reports Normal hearing present, Denies Abnormal speech present and Reports radicular pain Psych Reports depression, Denies hopelessness, Denies homicidal ideation and Denies suicidal ideation Endo Denies fatigue Aller/Immun Denies throat swelling and Denies tongue swelling Physical Exam Vital Signs: Last Vital Signs Pulse 77 12/03/22 09:02 BP 133/86 12/03/22 09:02 BMI result Body Mass Index 26.2 Const General: cooperative, no acute distress, well developed and well groomed Nutritional Appearance: average body habitus and well nourished Orientation/consciousness: oriented to person, oriented to place and oriented to time Limitations: No language barrier HEENT Head: Yes normocephalic and Yes atraumatic Teeth and gingiva: edentulous (Top teeth were pulled bottom dentition poor) and poor dentition Eyes General: appearance normal, both eyes and all related structures Pupils: Equal, round and reactive pupils present Neck Neck: Yes normal visual inspection and Yes no lymphadenopathy Thyroid: Thyroid normal Resp Effort & Inspection: normal respiratory effort and able to speak in complete sentences Auscultation: clear to auscultation bilaterally Cardio Rate: regular rate Rhythm: regular rhythm Heart sounds: Normal, physiologic split S2 sound present Peripheral pulses: radial pulses present and posterior tibial pulses present GI Inspection: No distended and No Abdominal panniculus present Palpation (GI): Soft to palpation, nontender, no guarding, not rigid and No hepatosplenomegaly present Percussion: Yes normal to percussion Auscultation: normal bowel sounds Rectal Exam - Male: Yes deferred Skin General skin exam: no rashes or lesions noted, turgor normal, skin not dry, no jaundice, No spider nevi and no striae Rashes: no rashes Nails: normal Neuro General: oriented to person, oriented to place and oriented to time Cranial nerves: Yes Equal, round and reactive pupils present and Yes Normal hearing present Speech: No Abnormal speech present Extrem General: Yes normal to inspection, No clubbing, No cyanosis and No edema Psych Appearance: grossly normal and well kempt Mental Status: mental status grossly normal Speech and movement: Normal speech and movement present Affect: normal affect Attitude: cooperative Thought process: Normal thought process present and not confabulating Thought content: Normal thought content present Insight: Fair insight present (Psych) and Limited insight present (Psych) Judgement: Fair judgement present (Psych) and Limited judgement present (Psych) Assessment & Plan Assessment & Plan (1) GERD (gastroesophageal reflux disease): Code(s): K21.9 - Gastro-esophageal reflux disease without esophagitis Plan: He has had a rough run; he was in the ER for severe back pain with left sided sciatica and then also developed severe dental pain and could not eat well. He feels guilty because they had to give him morphine and he is a recovered heroin user for 10 years. He has appts with pain mgmt and has seen a dentist and had all of his upper teeth pulled. He will be getting dentures. He will be starting PT for his back. 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 This caused some more rectal bleeding. This has been intermittent. He continues to have bleeding and what sounds like rectal prolapse as he describes my butt comes out. He has the dicyclomine in the omeprazole and is taking it but it is hard for him to evaluate how much this is been helping with all of the things he has been undergoing and all of the different medicines and his body. However, he has not been having abdominal pain recently. He admits he also does better when he is adherent to his fiber therapy which is been difficult because of the dental issues. He struggles regularly with depression but he feels that this is well controlled and his mood is good at this time. He understands that he will be improving his health little by little stating ?I abused my body for many years I now I need to take time to take care of myself. ? ROV 8 weeks. (2) Dysphagia: Comment: Negative barium swallowing EGD this sounds more psychogenic Code(s): R13.10 - Dysphagia, unspecified (3) Rectal bleeding: Comment: Well controlled with Proctosol cream Code(s): K62.5 - Hemorrhage of anus and rectum (4) Lumbar spondylosis: Comment: MRI shows multiple herniated discs with compression of L2, L3, L5 right, L4 left. Facet arthropathy Code(s): M47.816 - Spondylosis without myelopathy or radiculopathy, lumbar region Coding Level of Care Code Est Pt Level 3 (79717) Diagnoses GERD (gastroesophageal reflux disease) K21.9 Dysphagia R13.10 Rectal bleeding K62.5 Lumbar spondylosis M47.816
[2022-12-03 09:02] VITALS: BP 133/86; PULSE 77; BMI 26.2
== END 2022-12-03 09:33 | disposition home or self-care (01) ==
PROVIDERS: PCP Registered Nurse; Visit Provider Nurse Practitioner
DX: K21.9 Gastro-esophageal reflux disease without esophagitis (principal); R13.10 Dysphagia, unspecified; K62.5 Hemorrhage of anus and rectum; M47.816 Spondylosis without myelopathy or radiculopathy, lumbar region
CPT/HCPCS: 99213

== ENCOUNTER → 2022-12-03 08:50 | Outpatient (BNVA) | payer MEDICAID, SELFPAY | PROVIDERS: PCP Registered Nurse; Visit Provider Nurse Practitioner | DX: K21.9 Gastro-esophageal reflux disease without esophagitis (principal); R13.10 Dysphagia, unspecified; K62.5 Hemorrhage of anus and rectum; M47.816 Spondylosis without myelopathy or radiculopathy, lumbar region | CPT/HCPCS: 99212 ==

== ENCOUNTER 2022-12-06 10:18 | Outpatient (AMB) | payer MEDICAID, SELFPAY ==
--- NOTE | 2022-12-06 10:36 | A.OFFVIS_ITS ---
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 Allergies narcotics Adverse Reaction (Severe, Uncoded 12/03/22 09:07) dependence PFSH Medical History Hepatitis C Testicular torsion Opioid abuse Hypertension Surgical History H/O colonoscopy S/P tendon repair History of orchiectomy Social History (Updated 01/22/23 @ 09:34 by SOFY Ortiz) Alcohol intake: never Patient Tobacco Use Status: Former Tobacco user Tobacco use type: Cigarette Cigarettes Per Day: 10 Substance Use Type: Marijuana Assessment & Plan Assessment & Plan (1) Lumbago: Code(s): M54.50 - Low back pain, unspecified Qualifiers: Sciatica presence: without sciatica Qualified Code(s): M54.50 - Low back pain, unspecified Plan Dear colleague, Thank you for referring Brayan to our office today. Brayan is a pleasant 47-year-old male who comes in today with a chief complaint of axial low back pain, with some radiation around the lateral sides of his hips. He reports that he has had back pain for ?years approximating the time frame to be about 15 years, but states that due to his previous opioid use he did not realize/recognize that he had this pain. He reports that it was manageable for many years, but states that most recently during a colonoscopy 2 months ago he felt an extreme exacerbation of his back tenderness/pain, leading him to seek additional opinions for the etiology of his pain. He states that his pain is worse with walking/bending/lifting and better with sitting, lying down, and stretching. She reports no radicular or shooting symptoms down either leg, and reports no numbness/burning/tingling/weakness associated with this pain. He states that many years ago he attempted to see a chiropractor but felt that it was not helpful. He has not attempted to go to physical therapy, has not had cortisone injections, and has not sought other holistic methods for treating this problem. PMH: High blood pressure, GERD. Social hx: The patient does not smoke, reports no current substance use. States he has been sober from opiates for 10 years. Medications: Spironolactone, amlodipine, cyclobenzaprine, lidocaine, omeprazole, ketorolac. Allergies: NKDA. Physical exam: Mobility / function: Patient ambulates well, can rise from a seated position without difficulty. Sensation: Grossly intact. CN: II-XII grossly intact. Strength Testing Upper Extremities: - Deltoid 5/5 right 5/5 left - Biceps 5/5 right 5/5 left - Triceps 5/5 right 5/5 left - Wrist Ext 5/5 right 5/5 left - Wrist Flex 5/5 right 5/5 left - Hand press smith helper 5/5 right 5/5 left - Interossei 5/5 right 5/5 left Strength Testing Lower Extremities: - Hip flexion 5/5 right 5/5 left - Knee extension 5/5 right 5/5 left - Dorsiflexion 5/5 right 5/5 left - Plantar flex 5/5 right 5/5 left - EHL 5/5 right 5/5 left Reflexes: - Biceps Right - 2+ Left - 2+ - Triceps Right - 2+ Left - 2+ - Patellar Right - 2+ Left - 2+ - Achilles Right - 2+ Left - 2+ - Plantar Right - 2+ Left - 2+ (-) Gaenslen's bilaterally (-) Ella's bilaterally (-) Clonus (-) Straight leg raise bilaterally Imaging review: MRI of the lumbar spine shows spondylosis with mild diffuse a rthropathy of the lumbar spine. Some mild impingement noted of the left exiting L5 nerve root. No significant disc herniations or central canal stenosis noted. Impression: Brayan is a 47-year-old male who comes in today with a chief complaint of 15 years of longstanding low back pain. He states that his back pain recently became worse after he had a colonoscopy completed 2 months ago where he states he was manipulated on the exam table into position that is quite abnormal for him. He reports that directly after his colonoscopy he felt as though he had severe low back pain and a pulling sensation associated with the pain in his back. Overall after reviewing his MRI with LAKESHA Aguilera it was determined that is generally unremarkable from a surgical standpoint. Brayan likely has an acute sprain/strain of his low back which will resolve with time. We did discuss the possibility of physical therapy, which he stated he would like to do. We will be referring him to physical therapy here at [facility] as he states he gets all of his care here. Thank you for allowing us to care for your patient. The total time spent with this visit with this patient was 45 minutes reviewing history, physical exam, MRI lumbar spine imaging review, and implementation of treatment plan or further diagnostic testing. Enrique Rdz MD,PhD [facility] Orders: Orders PT Evaluation and Treatment 12/06/22 M47.816 - Spondylosis without myelopathy or radiculopathy, lumbar region Coding Level of Care Code New Pt Level 4 (95851) Diagnoses Low back pain without sciatica, unspecified back pain laterality, unspecified chronicity M54.50 Sciatica presence: without sciatica
== END 2022-12-06 11:41 | disposition home or self-care (01) ==
PROVIDERS: PCP Registered Nurse; Visit Provider Physician Assistant
DX: M54.50 Low back pain, unspecified (principal)
CPT/HCPCS: 99204

== ENCOUNTER → 2022-12-06 10:18 | Outpatient (BNVA) | payer MEDICAID, SELFPAY | PROVIDERS: PCP Registered Nurse; Visit Provider Physician Assistant | DX: M54.50 Low back pain, unspecified (principal) | CPT/HCPCS: 99212 ==

== ENCOUNTER 2023-01-22 09:10 | Outpatient (AMB) | payer MEDICAID, SELFPAY ==
--- NOTE | 2023-01-22 09:17 | A.OFFVIS_ITS ---
Intake Vital Signs 01/22/23 09:21 Height 5 ft 6 in Weight 166 lb 10.711 oz BMI 26.9 BP 142/85 H Blood Pressure Location Lt brachial Position Sitting Pulse 65 Intake Visit Reasons: 8 week follow up Intake Note: Patient presents to in office visit today in 8 weeks follow up of rectal bleeding. CC: Patient continues to have rectal bleeding. Denies having any new GI symptoms. 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 He feels guilty because they had to give him morphine and he is a recovered heroin user for 10 years. He has appts with pain mgmt and has seen a dentist and had all of his upper teeth pulled. He will be getting dentures. He will be starting PT for his back. 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 This caused some more rectal bleeding. This has been intermittent. He continues to have bleeding and what sounds like rectal prolapse as he describes my butt comes out. He has the dicyclomine in the omeprazole and is taking it but it is hard for him to evaluate how much this is been helping with all of the things he has been undergoing and all of the different medicines and his body. However, he has not been having abdominal pain recently. He admits he also does better when he is adherent to his fiber therapy which is been difficult because of the dental issues. He struggles regularly with depression but he feels that this is well controlled and his mood is good at this time. He understands that he will be improving his health little by little stating ?I abused my body for many years I now I need to take time to take care of myself. ? ROV 8 weeks. (2) Dysphagia: Comment: Negative barium swallowing EGD this sounds more psychogenic Code(s): R13.10 - Dysphagia, unspecified (3) Rectal bleeding: Comment: Well controlled with Proctosol cream Code(s): K62.5 - Hemorrhage of anus and rectum (4) Lumbar spondylosis: Comment: MRI shows multiple herniated discs with compression of L2, L3, L5 right, L4 left. Facet arthropathy Code(s): M47.816 - Spondylosis without myelopathy or radiculopathy, lumbar region TODAY'S VISIT He has the dicyclomine in the omeprazole and is taking it but it is hard for him to evaluate how much this is been helping with all of his ongoing dental problems. He stopped smoking! This has increased his appetite for foods he was not tasting well before. He still does not have his upper teeth fixed, so he continues to struggle with chewing and swallowing. He will have trouble with breads sticky foods. He can not eat much fiber r/t a low residue diet with the dental problems. He always did better with fiber therapy and his BM's, so he still has rectal bleeding and a possible prolapse but he feels that the proctosol cream helps. ROV 6 mos. PFSH Medical History Hepatitis C Testicular torsion Opioid abuse Hypertension Surgical History H/O colonoscopy S/P tendon repair History of orchiectomy Social History (Updated 01/22/23 @ 09:34 by SOFY Ortiz) Alcohol intake: never Patient Tobacco Use Status: Former Tobacco user Tobacco use type: Cigarette Cigarettes Per Day: 10 Substance Use Type: Marijuana Review of Systems Const Denies fatigue, Denies fever(s), Denies night sweats, Denies poor appetite and Denies weight loss ENT Reports Normal hearing present, Denies dysphagia, Denies hearing loss, Denies mouth pain, Denies odynophagia, Denies throat swelling and Denies tongue swelling Card Reports no additional complaints Resp Reports no additional complaints GI Denies abdominal pain, Denies melena, Denies bloating, Reports hematochezia, Reports constipation, Denies GI cramping, Denies dysphagia, Denies excessive flatus, Denies early satiety, Reports heartburn, Denies diarrhea, Denies nausea, Denies odynophagia, Denies vomiting and Denies hematemesis Musc Reports back pain Skin/Breast Denies pruritus, Denies lesions, Denies rash and Denies jaundice Neuro Reports Normal hearing present and Denies Abnormal speech present Endo Denies fatigue Aller/Immun Denies throat swelling and Denies tongue swelling Physical Exam Vital Signs: Last Vital Signs Pulse 65 01/22/23 09:21 BP 142/85 H 01/22/23 09:21 BMI result Body Mass Index 26.9 Const General: cooperative, no acute distress, well developed and well groomed Nutritional Appearance: average body habitus and well nourished Orientation/consciousness: oriented to person, oriented to place and oriented to time Limitations: No language barrier HEENT Head: Yes normocephalic and Yes atraumatic Teeth and gingiva: poor dentition (Missing upper teeth) Eyes General: appearance normal, both eyes and all related structures Pupils: Equal, round and reactive pupils present Neck Neck: Yes normal visual inspection and Yes no lymphadenopathy Thyroid: Thyroid normal Resp Effort & Inspection: normal respiratory effort and able to speak in complete sentences Auscultation: clear to auscultation bilaterally Cardio Rate: regular rate Rhythm: regular rhythm Heart sounds: Normal, physiologic split S2 sound present Peripheral pulses: radial pulses present and posterior tibial pulses present GI Inspection: No distended and No Abdominal panniculus present Palpation (GI): Soft to palpation, nontender, no guarding, not rigid and No hepatosplenomegaly present Percussion: Yes normal to percussion Auscultation: normal bowel sounds Rectal Exam - Male: Yes deferred Skin General skin exam: no rashes or lesions noted, turgor normal, skin not dry, no jaundice, No spider nevi and no striae Rashes: no rashes Nails: normal Neuro General: oriented to person, oriented to place and oriented to time Cranial nerves: Yes Equal, round and reactive pupils present and Yes Normal hearing present Speech: No Abnormal speech present Extrem General: Yes normal to inspection, No clubbing, No cyanosis and No edema Psych Appearance: grossly normal and well kempt Mental Status: mental status grossly normal Speech and movement: Normal speech and movement present Affect: normal affect Attitude: cooperative Thought process: Normal thought process present and not confabulating Thought content: Normal thought content present Insight: Limited insight present (Psych) Judgement: Limited judgement present (Psych) Assessment & Plan Assessment & Plan (1) GERD (gastroesophageal reflux disease): Code(s): K21.9 - Gastro-esophageal reflux disease without esophagitis Plan: He has the dicyclomine in the omeprazole and is taking it but it is hard for him to evaluate how much this is been helping with all of his ongoing dental problems. He stopped smoking! This has increased his appetite for foods he was not tasting well before. He still does not have his upper teeth fixed, so he continues to struggle with chewing and swallowing. He will have trouble with breads sticky foods. He can not eat much fiber r/t a low residue diet with the dental problems. He always did better with fiber therapy and his BM's, so he still has rectal bleeding and a possible prolapse but he feels that the proctosol cream helps. ROV 6 mos. (2) Dysphagia: Comment: Negative barium swallowing EGD this sounds more psychogenic Code(s): R13.10 - Dysphagia, unspecified Coding Level of Care Code Est Pt Level 3 (41848) Diagnoses GERD (gastroesophageal reflux disease) K21.9 Dysphagia R13.10
[2023-01-22 09:21] VITALS: BP 142/85; PULSE 65; BMI 26.9
== END 2023-01-22 09:56 | disposition home or self-care (01) ==
PROVIDERS: PCP Registered Nurse; Visit Provider Nurse Practitioner
DX: K21.9 Gastro-esophageal reflux disease without esophagitis (principal); R13.10 Dysphagia, unspecified
CPT/HCPCS: 99213

== ENCOUNTER → 2023-01-22 09:10 | Outpatient (BNVA) | payer MEDICAID, SELFPAY | PROVIDERS: PCP Registered Nurse; Visit Provider Nurse Practitioner | DX: K21.9 Gastro-esophageal reflux disease without esophagitis (principal); R13.10 Dysphagia, unspecified | CPT/HCPCS: 99212 ==

== ENCOUNTER 2023-08-21 14:13 | Outpatient (AMB) | payer MEDICAID, SELFPAY ==
[2023-08-21 14:21] VITALS: BP 119/73; PULSE 67; BMI 28.4
--- NOTE | 2023-08-21 14:21 | MHC.OFFVIS ---
Vital Signs 08/21/23 14:21 Height 5 ft 6 in Weight 175 lb 14.862 oz BMI 28.4 BP 119/73 Blood Pressure Location Lt brachial Position Sitting Pulse 67 Intake Visit Reasons: 6 month follow up Intake Note: Brayan returns to in office 6 months follow up of rectal bleeding. CC: Patient states that at the beginning of this month he began to have a sharp epigastric pain that lasted about 3 days. After the pain started he was having dark stools for 2 days. 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 He stopped smoking! This has increased his appetite for foods he was not tasting well before. He still does not have his upper teeth fixed, so he continues to struggle with chewing and swallowing. He will have trouble with breads sticky foods. He can not eat much fiber r/t a low residue diet with the dental problems. He always did better with fiber therapy and his BM's, so he still has rectal bleeding and a possible prolapse but he feels that the proctosol cream helps. ROV 6 mos. (2) Dysphagia: Comment: Negative barium swallowing EGD this sounds more psychogenic Code(s): R13.10 - Dysphagia, unspecifiedn TODAY'S VISIT He has continued dental problems, they tell him that he has a bone growing in the roof of his mouth and they can not fit him for dentures. He needs to go to [place] for this. He is also having eye problems, a symptom of central serous chorioretinopathy (CSC),? He is doing well on his omeprazole and his bentyl. The proctosol cream helps with roids. Overall he is getting his energy back since being txed for Hep C. He still is not smoking! It has been about a year! ROV 6 mos. PFS Medical History Hepatitis C Testicular torsion Opioid abuse Hypertension Surgical History H/O colonoscopy S/P tendon repair History of orchiectomy Social History Alcohol intake: never Patient Tobacco Use Status: Former Tobacco user Tobacco use type: Cigarette Cigarettes Per Day: 10 Substance Use Type: Marijuana Review of Systems Const Denies fatigue, Denies fever(s), Denies night sweats, Denies poor appetite and Denies weight loss Eyes Reports change in vision ENT Reports Normal hearing present, Reports dental pain, Denies dysphagia, Denies hearing loss, Reports mouth pain, Denies odynophagia, Denies throat swelling, Denies tongue swelling and Reports other (Dentition adequate) Card Reports no additional complaints Resp Reports no additional complaints GI Details: Denies abdominal pain, Denies melena, Denies bloating, Denies hematochezia, Denies constipation, Denies GI cramping, Denies dysphagia, Denies excessive flatus, Denies early satiety, Reports heartburn, Denies diarrhea, Denies nausea, Denies odynophagia, Denies vomiting and Denies hematemesis Skin/Breast Denies pruritus, Denies lesions, Denies rash and Denies jaundice Neuro Reports Normal hearing present and Denies Abnormal speech present Endo Denies fatigue Aller/Immun Denies throat swelling and Denies tongue swelling Physical Exam Vital Signs: Last Vital Signs Pulse 67 08/21/23 14:21 BP 119/73 08/21/23 14:21 BMI result Body Mass Index 28.4 Const General: cooperative, no acute distress, well developed and well groomed Nutritional Appearance: average body habitus and well nourished Orientation/consciousness: oriented to person, oriented to place and oriented to time Limitations: No language barrier HEENT Head: Yes normocephalic and Yes atraumatic Eyes General: appearance normal, both eyes and all related structures Pupils: Equal, round and reactive pupils present Neck Neck: Yes normal visual inspection and Yes no lymphadenopathy Thyroid: Thyroid normal Resp Effort & Inspection: normal respiratory effort and able to speak in complete sentences Auscultation: clear to auscultation bilaterally Cardio Rate: regular rate Rhythm: regular rhythm Heart sounds: Normal, physiologic split S2 sound present Peripheral pulses: radial pulses present and posterior tibial pulses present GI Inspection: No distended and No Abdominal panniculus present Palpation (GI): Soft to palpation, nontender, no guarding, not rigid and No hepatosplenomegaly present Percussion: Yes normal to percussion Auscultation: normal bowel sounds Rectal Exam - Male: Yes deferred Skin General skin exam: no rashes or lesions noted, turgor normal, skin not dry, no jaundice, No spider nevi and no striae Rashes: no rashes Nails: normal Neuro General: oriented to person, oriented to place and oriented to time Cranial nerves: Yes Equal, round and reactive pupils present and Yes Normal hearing present Speech: No Abnormal speech present Extrem General: Yes normal to inspection, No clubbing, No cyanosis and No edema Psych Appearance: grossly normal and well kempt Mental Status: mental status grossly normal Speech and movement: Normal speech and movement present Affect: normal affect Attitude: cooperative Thought process: Normal thought process present and not confabulating Thought content: Normal thought content present Insight: Limited insight present (Psych) Judgement: Limited judgement present (Psych) Assessment & Plan Assessment & Plan (1) GERD (gastroesophageal reflux disease): Code(s): K21.9 - Gastro-esophageal reflux disease without esophagitis Category: Medical (2) Hemorrhoids: Code(s): K64.9 - Unspecified hemorrhoids Category: Medical Plan He has continued dental problems, they tell him that he has a bone growing in the roof of his mouth and they can not fit him for dentures. He needs to go to [place] for this. He is also having eye problems, a symptom of central serous chorioretinopathy (CSC),? He is doing well on his omeprazole and his bentyl. The proctosol cream helps with roids. Overall he is getting his energy back since being txed for Hep C. He still is not smoking! It has been about a year! ROV 6 mos. Medications: Refilled hydrocortisone 2.5% (Proctosol HC) 1 appl [place] BID 30 grams 3RF hemorrhoids K64.9 - Unspecified hemorrhoids dicyclomine 20 mg PO BID 60 tabs 3RF 30 days omeprazole 20 mg PO DAILY 90 caps 3RF 90 days K21.9 - Gastro-esophageal reflux disease without esophagitis Coding Level of Care Code Est Pt Level 3 (48749) Diagnoses GERD (gastroesophageal reflux disease) K21.9 Hemorrhoids K64.9
== END 2023-08-21 14:48 | disposition home or self-care (01) ==
PROVIDERS: PCP Registered Nurse; Visit Provider Nurse Practitioner
DX: K21.9 Gastro-esophageal reflux disease without esophagitis (principal); K64.9 Unspecified hemorrhoids
CPT/HCPCS: 99213

== ENCOUNTER → 2023-08-21 14:13 | Outpatient (BNVA) | payer MEDICAID, SELFPAY | PROVIDERS: PCP Registered Nurse; Visit Provider Nurse Practitioner | DX: K21.9 Gastro-esophageal reflux disease without esophagitis (principal); K64.9 Unspecified hemorrhoids | CPT/HCPCS: 99212 ==

== ENCOUNTER 2024-02-12 13:34 | Outpatient (AMB) | payer MEDICAID, SELFPAY ==
--- OUTSIDE RECORDS SUMMARY | 2024-02-12 13:37 | XMS_ITS | Continuity of Care Document ---
Author Organization [facility] Address [address] [place] [address] Phone Care Team Providers Care Ring Packer Name Role Phone Albert AGARWAL, Vincent Unavailable Unavailable Allergies, Adverse Reactions, Alerts Substance Reaction Status Criticality No Known allergies Medications Medication Instructions Dosage Effective Dates (start - stop) Status Comments ibuprofen 800 mg Tab take 1 tablet (800MG) by oral route 3 times every day with food 800 MG - Active penicillin V potassium 500 mg Tab take 1 tablet (500MG) by oral route every 8 hours 500 MG - Active Percocet 5 mg-325 mg Tab take 1 tablet by oral route every 6 hours as needed 1.00 tablet - Active scripts written Advance Directives Directive Yes / No Effective Date File Name No Information Encounters Encounter Description Practice Location Reason(s) For Visit Diagnoses Date Provider [facility], [address] [place] [address] tel:[phone] 00 [facility] No Information 2011 Albert Kaur. [address] [place] [address], [id number] [place] [address]. tel:[phone] tel:[phone] [facility] right testicle swelling for one month (chief complaint) ORCHITIS/EPIDI DYMIT NEC 2011 Higinio Yañez . [address] [facility], [id number] [address] [place] [address]. tel:[phone] tel:[phone] [facility] pain in the mouth (chief complaint) Tooth Abscess 2010 Higinio Yañez . [address] [facility], [id number] [address] [place] [address], [facility], . tel:[phone] Family History Family Member Type Diagnosis Age At Onset Problem (finding) Family history of hyper tension Problem (finding) Family history of strok e Problem (finding) Family history of Diabe karie mellitus Problem (finding) Family history of coronary arteriosclerosis Problem (finding) Family history of Cance r - Payers Payer name Insurance type Covered democrat ID Authoriza tion(s) No Information Social History Type Description Quantity Date Captured Comments Sex Male Smoking Status No Information Chief Complaint And Reason For Visit No Information History Of Present Illness Encounter Date Complaint History Of Prese nt Illness No Information Instructions Date Instruction Additional Infor mation Warm compresses Increase rest Patient understood and made info rmed decision Reviewed medications Patient understood and made info rmed decision Reviewed medications Take new medication as prescribe d Apply ice to affected area Saline gargles Assessments Type Assessment Date No Information
--- NOTE | 2024-02-12 13:40 | MHC.OFFVIS ---
Vital Signs 02/12/24 13:46 Height 5 ft 6 in Weight 174 lb 9.698 oz BMI 28.2 BP 128/78 Blood Pressure Location Lt brachial Position Sitting Pulse 72 Intake Visit Reasons: 6 month follow up Intake Note: Brayan presents in office today in 6 months follow up of GERD. CC: Patient states that he continues to have rectal bleeding sometimes. Denies other GI symptoms. 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 He needs to go to [place] for this. He is also having eye problems, a symptom of central serous chorioretinopathy (CSC),? He is doing well on his omeprazole and his bentyl. The proctosol cream helps with roids. Overall he is getting his energy back since being txed for Hep C. He still is not smoking! It has been about a year! ROV 6 mos. Medications: Refilled hydrocortisone 2.5% (Proctosol HC) 1 appl MN BID 30 grams 3RF hemorrhoids K64.9 - Unspecified hemorrhoids dicyclomine 20 mg PO BID 60 tabs 3RF 30 days TODAY'S VISIT He will still have some episodes of rectal bleeding, but this is not frequent. His mother also struggled with hemorrhoids so there is likely a genetic factor exacerbated in the past when he has severe CIC r/t opiate use (he has been clean for 15 years). The proctosol cream does continue to help and he has not CIC or diarrhea currently. He continues to have eye problems and dental problems. He will be going for his dental impressions next. He continues to have episodes of gasping for air when he has perceived trouble swallowing his saliva. He recently had an EEG to see if seizures were in the ddx, but this was negative. He will have a cardiac workup next. ROV 6 mos. [facility] Medical History Hepatitis C Testicular torsion Opioid abuse Hypertension Surgical History H/O colonoscopy S/P tendon repair History of orchiectomy Social History Alcohol intake: never Patient Tobacco Use Status: Former Tobacco user Tobacco use type: Cigarette Cigarettes Per Day: 10 Substance Use Type: Marijuana Review of Systems Const Denies fatigue, Denies fever(s), Denies night sweats, Denies poor appetite and Denies weight loss Eyes Reports spots in vision ENT Reports Normal hearing present, Denies dental pain, Denies dysphagia, Denies hearing loss, Denies mouth pain, Denies odynophagia, Denies throat swelling, Denies tongue swelling and Reports other (Dentition adequate) Card Reports rapid heart rate and Reports lightheadedness Resp Reports no additional complaints GI Details: Denies abdominal pain, Denies melena, Denies bloating, Reports hematochezia, Denies constipation, Denies GI cramping, Denies dysphagia, Denies excessive flatus, Denies early satiety, Reports heartburn, Denies diarrhea, Reports loose stools, Denies nausea, Denies odynophagia, Denies vomiting and Denies hematemesis Skin/Breast Denies pruritus, Denies lesions, Denies rash and Denies jaundice Neuro Reports Normal hearing present and Denies Abnormal speech present Endo Denies fatigue Aller/Immun Denies throat swelling and Denies tongue swelling Physical Exam Const General: cooperative, no acute distress, well developed and well groomed Nutritional Appearance: average body habitus and well nourished Orientation/consciousness: oriented to person, oriented to place and oriented to time Limitations: No language barrier HEENT Head: Yes normocephalic and Yes atraumatic Eyes General: appearance normal, both eyes and all related structures Pupils: Equal, round and reactive pupils present Neck Neck: Yes normal visual inspection and Yes no lymphadenopathy Thyroid: Thyroid normal Resp Effort & Inspection: normal respiratory effort and able to speak in complete sentences Auscultation: clear to auscultation bilaterally Cardio Rate: regular rate Rhythm: regular rhythm Heart sounds: Normal, physiologic split S2 sound present Peripheral pulses: radial pulses present and posterior tibial pulses present GI Inspection: No distended and No Abdominal panniculus present Palpation (GI): Soft to palpation, nontender, no guarding, not rigid and No hepatosplenomegaly present Percussion: Yes normal to percussion Auscultation: normal bowel sounds Rectal Exam - Male: Yes deferred Skin General skin exam: no rashes or lesions noted, turgor normal, skin not dry, no jaundice, No spider nevi and no striae Rashes: no rashes Nails: normal Neuro General: oriented to person, oriented to place and oriented to time Cranial nerves: Yes Equal, round and reactive pupils present and Yes Normal hearing present Speech: No Abnormal speech present Extrem General: Yes normal to inspection, No clubbing, No cyanosis and No edema Psych Appearance: grossly normal and well kempt Mental Status: mental status grossly normal Speech and movement: Normal speech and movement present Affect: normal affect Attitude: cooperative Thought process: Normal thought process present and not confabulating Thought content: Normal thought content present Insight: Limited insight present (Psych) Judgement: Limited judgement present (Psych) Assessment & Plan Assessment & Plan (1) GERD (gastroesophageal reflux disease): Code(s): K21.9 - Gastro-esophageal reflux disease without esophagitis Category: Medical (2) Rectal bleeding: Comment: Well controlled with Proctosol cream Code(s): K62.5 - Hemorrhage of anus and rectum Category: Medical (3) IBS (irritable bowel syndrome): Code(s): K58.9 - Irritable bowel syndrome, unspecified Category: Medical Plan He will still have some episodes of rectal bleeding, but this is not frequent. His mother also struggled with hemorrhoids so there is likely a genetic factor exacerbated in the past when he has severe CIC r/t opiate use (he has been clean for 15 years). The proctosol cream does continue to help and he has not CIC or diarrhea currently. He continues to have eye problems and dental problems. He will be going for his dental impressions next. He continues to have episodes of gasping for air when he has perceived trouble swallowing his saliva. He recently had an EEG to see if seizures were in the ddx, but this was negative. He will have a cardiac workup next. ROV 6 mos. Medications: Refilled dicyclomine 20 mg PO BID 30 days 60 tabs 6RF hydrocortisone 2.5% (Proctosol HC) 1 appl MN BID 30 grams 6RF hemorrhoids K64.9 - Unspecified hemorrhoids omeprazole 20 mg PO DAILY 90 days 90 caps 3RF K21.9 - Gastro-esophageal reflux disease without esophagitis Coding Level of Care Code Est Pt Level 3 (85240) Diagnoses GERD (gastroesophageal reflux disease) K21.9 Rectal bleeding K62.5 IBS (irritable bowel syndrome) K58.9
[2024-02-12 13:46] VITALS: BP 128/78; PULSE 72; BMI 28.2
== END 2024-02-12 14:57 | disposition home or self-care (01) ==
PROVIDERS: PCP Registered Nurse; Visit Provider Nurse Practitioner
DX: K21.9 Gastro-esophageal reflux disease without esophagitis (principal); K62.5 Hemorrhage of anus and rectum; K58.9 Irritable bowel syndrome, unspecified
CPT/HCPCS: 99213

== ENCOUNTER → 2024-02-12 13:34 | Outpatient (BNVA) | payer MEDICAID, SELFPAY | PROVIDERS: PCP Registered Nurse; Visit Provider Nurse Practitioner | DX: K21.9 Gastro-esophageal reflux disease without esophagitis (principal); K62.5 Hemorrhage of anus and rectum; K58.9 Irritable bowel syndrome, unspecified; K64.9 Unspecified hemorrhoids | CPT/HCPCS: 99212 ==

== ENCOUNTER 2024-07-13 10:12 | Outpatient (REF) | payer MEDICAID, SELFPAY ==
--- OUTSIDE RECORDS SUMMARY | 2024-07-13 11:23 | XMS_ITS | Encounter Summary ---
Author Organization [employer] Address [address] [place] [address] Care Team Providers Care [employer] Transactions Attorney Name Role Phone Maria D Chapin ADRIAN Primary Care Provider [phone] [place] Unavailable Encounter Details Date Type Department Care Team ([facility] st Contact Info) Description 10/21/2023 Orders Only [facility] [address] [place], [place] [id number] ProviderCecy MD Social History Tobacco Use Types Packs/Day Years Used Date Smoking Tobacco: Former Cigarettes Q uit: 09/2022 Passive Smoke Exposure: Never Smokeless Tobacco: Never Alcohol Use Standard Drinks/Week Comments Never 0 (1 standard drink = 0.6 oz pur e alcohol) Depression Answer Date Recorded Patient Health Questionnaire-9 Score 10 06/02/2023 Patient Health Questionnaire-9 Score 10 06/02/2023 Last PHQ-9: Questionnaire Data Not on file 0 06/02/2023 Housing Stability Answer Date Recorded What is your housing situation today? I have pop bravo 09/22/[address] you li ve. Do you have problems with any of the following? None of the above 09/22/2023 Food Insecurity Answer Date Recorded Within the past 12 months, y ou worried that your food would run out before you got money to buy more: Never True 09/22/2023 Within the past 12 months,th e food you bought just didn't last and you didn't have enough money to get more: Never True Transportation Answer Date Recorded In the past 12 months, has l ack of transportation kept you from medical appts, meetings, work or from getting things needed for daily living? No 09/22/2023 Utilities Answer Date Recorded In the past 12 months, has t he electric, gas, oil or water company threatened to shut off services in your home? No 09/22/2023 Depression Answer Date Recorded Patient Health Questionnaire-2 Score 2 06/02/2023 Sex and Gender Information Value Date Recorded Sex Assigned at Male 12/24/2021 10:36 AM EDT Legal Sex Male 10:36 AM EDT Gender Identity Male 12/24/2021 10:36 AM EDT Sexual Orientation Straight 12/24/2021 10 :36 AM EDT documented as of this encounter Plan of Treatment Upcoming Encounters Date Type Department Care Team (Late st Contact Info) Description 07/16/2024 1:45 PM EDT Office Visit [facility] [address] [place] [address] Maria D Chapin FNP [address] [place] [address] documented as of this encounter Procedures Procedure Name Priority Date/Time Associated Diagnosis Comments HM COLONOSCOPY Routine 10/08/2022 6:41 PM EDT documented in this encounter Results * (ABNORMAL) Hm Colonoscopy (10/08/2022 6:41 PM EDT) Historical Provider HEALTH MAINTENANCE Final Result documented in this encounter Visit Diagnoses Not on filedocumented in this encounter Additional Health Concerns Assessment Noted Time PHQ-9 Depression Total Score: 10 024 11:12 AM EDT documented as of this encounter Care Teams [employer] Transactions Attorney Relationship Specialty Start Date End Date Maria D Chapin FNP [address] [place] [address] PCP - General Family Medicine 08/03/21 [facility] [address] [place] [address] Gastroenterology 03/05/24 documented as of this encounter
--- OUTSIDE RECORDS SUMMARY | 2024-07-13 11:23 | XMS_ITS | Clinical Summary ---
Author Organization [employer] Address [address] [facility] [address] [place] [address] Care Team Providers Care Relay Adjuster Name Role Phone Maria D Chapin ADRIAN Primary Care Provider [phone] May Unavailable Allergies No known active allergies Medications dicyclomine (Bentyl) 20 MG tablet Take 20 mg by mouth 2 times daily. 10/23/19 23 Active omeprazole (PriLOSEC) [address] capsule Take 20 mg by mouth in the morning. 10/25/19 23 Active spironolactone (Aldactone) 50 MG tablet Take 50 mg by mouth 2 times daily. 12/07/19 23 Active hydrocortisone (Anusol-HC) 2.5 % rectal cream APPLY RECTALLY TO THE AFFECTED AREA TWICE DAILY FOR HEMORRHOIDS 30 g 3 07/24/19 24 Active econazole nitrate 1 % creamIndication s:Tinea barbae Apply topically 2 times daily. Apply to neck for 2-4 weeks 30 g 1 03/05/19 25 026 Active hydrocortisone 2.5 % creamIndication s:Tinea barbae Apply topically 2 times daily. Apply to neck for 2-4 weeks 30 g 03/05/19 25 Active lidocaine (Lidoderm) 5 % patch Apply 1 patch topically Once per day. Remove & discard patch within 12 hours or as directed by MD. 30 patch 1 03/05/19 25 Active amLODIPine-brayan zepril (Lotrel) 5-10 MG capsuleIndicati ons:Primary hypertension TAKE 1 CAPSULE BY MOUTH EVERY DAY 90 capsule 3 06/29/19 25 Active amLODIPine-brayan zepril (Lotrel) 5-10 MG capsuleIndicati ons:Primary hypertension TAKE 1 CAPSULE BY MOUTH EVERY DAY 90 capsule 3 09/23/19 24 025 Discontinued Active Problems Problem Noted Date Diagnosed Date GERD (gastroesophageal reflux disease) Assessment & Plan (10/02/2023 8:59 PM EDT): Following with [facility] - INTERVENTIONAL RADIOLOGIST Sherly (last consult July 2023) Continues with omeprazole and Bentyl Hemorrhoids 10/02/2023 Near syncope 10/02/2023 Assessment & Plan (10/02/2023 9:15 PM EDT): Describes daily experience of near syncopal events provoked by swallowing. Onset: years Request swallow study results from [facility] Referral to [facility] for further evaluation History of rectal bleeding 02/10/2023 Overview (02/10/2023): ?? Following with [facility] ? ? Sep 2022: Colonoscopy completed by Dr. Williamson for rectal bleeding. Identified polyps and internal hemorrhoids. Plan to repeat colonoscopy in 5 years or sooner if needed. Tubular adenoma ? ? Cont proctosol cream Tubular adenoma of colon 02/10/2023 Liver fibrosis 01/13/2023 Assessment & Plan (02/10/2023 9:56 PM EST): ?? US abdomen w/ elastography ordered Dec 2022. Pt reports received call to schedule, but currently waiting until dental health has been stabilized. No acute changes. Encouraged cont lifestyle interventions. Routine health maintenance 04/07/2022 Overview (01/13/2023): ?? Colonoscopy: completed 10/08/22, polyps, tubular adenoma. Due 2027 ?? Lung CA: Discuss eligibility at 49 y/o ?? PSA: August 2021 WNL ?? Optometry: follows with [facility] ?? Dental: Encouraged to establish dental home History of hepatitis C 04/07/2022 Overview (01/13/2023): ?? Pt treated at [facility] Hep C clinic and started on Mavyret x 8 weeks. Completed tx 01/23/22. ?? HUGH 06/17/22 Assessment & Plan (04/07/2022 6:52 PM EST): Vaccine: Hep B dose #3 administered in office today Lumbar disc herniation 03/08/2022 Overview (06/09/2023): MRI Oct 2022: 1. Right foraminal disc protrusion at the L2-L3 level compressing the right L2 nerve root. 2. Right foraminal/extraforaminal disc protrusion at the L3-L4 level with mass effect upon the right L3 nerve root. 3. Left foraminal disc protrusion and endplate spurring at the L4-L5 level mildly impressing upon the exiting left L4 nerve root. 4. Shallow, broad-based right foraminal/ extraforaminal disc protrusion and endplate spurring at the L5-S1 level impressing upon the right L5 nerve root with moderate right foraminal encroachment. Assessment & Plan (06/09/2023 6:22 PM EDT): -No red flag symptoms -Cont following with specialists -Start cyclobenzaprine 5-10mg TID PRN muscle spasms. Reviewed med use and safety. Advised to take before bed d/t potential SE of sleepiness. Assessment & Plan (01/13/2023 12:43 PM EST): -No red flag symptoms -Cont following with specialists Essential hypertension 03/08/2022 Overview (10/02/2023): -Continue with amlodipine 5mg-benazepril 10mg daily -Spironolactone 50mg BID (through [facility]) -Encourage lifestyle interventions such as low salt diet and daily physical activity Assessment & Plan (03/05/2024 10:35 AM EST): - Well controlled, cont with current regimen Assessment & Plan (06/09/2023 6:24 PM EDT): - BP goal < 140/90 mmHg - BP elevated in office today, although pt reports he did not take BP med this AM. Encouraged consistent med adherence, follow up before recall if home BP readings above goal Mixed anxiety and depressive disorder 03/08/2022 Overview (03/05/2024): -Denies SI/HI/thoughts of self harm Assessment & Plan (03/05/2024 10:30 AM EST): -Reports history of challenging situations in his past, for which he used to use substances. Has been in recovery for the past 10 years approximately -Previous tx with Zoloft was changed to escitalopram given hx of liver dx. Pt did not feel as though as therapeutic/beneficial for him, and therefore DC'd med. -Declines referral to N for therapist -Pt denies SI/HI/thoughts of self harm Assessment & Plan (10/02/2023 9:05 PM EDT): -Reports history of challenging situations in his past, for which he used to use substances. Has been in recovery for the past 10 years approximately -Previous tx with Zoloft was changed to escitalopram given hx of liver dx. Pt did not feel as though as therapeutic/beneficial for him, and therefore DC'd med. -Declines referral to N for therapist -Pt denies SI/HI/thoughts of self harm Assessment & Plan (02/10/2023 10:05 PM EST): -Denies med SE. Does not feel as though has yet noticed therapeutic benefit, although only about 4 weeks. Discussed therapeutic range usually greater than 10mg daily, although pt declines med adjustment at this time. Will call if interested in increasing to 20mg daily. -Defers interest in referral at this time Assessment & Plan (01/13/2023 12:45 PM EST): -PHQ9 score:12 -Shared decision making to start fluoxetine 10mg daily. Reviewed med use and SE. -Defers interest in referral at this time Opioid dependence in remission 03/08/2022 Prediabetes 03/08/2022 Overview (01/13/2023): Lab Results Component Value Date HGBA1C 5.8 01/13/2023 -Well controlled -Encouraged lifestyle interventions Tobacco dependence syndrome 03/08/2022 Assessment & Plan (01/13/2023 12:42 PM EST): Quit date: September 2022 -Congratulated on smoking cessation Hypertensive retinopathy 12/23/2021 Overview (10/02/2023): June 2023: [facility] [place]. Dr. Nelson. 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 Plan: observe and repeat OCT mac with Dr. Montalvo. Chronic liver disease 12/31/2019 Overview (10/02/2023): -US 11/01/21 with elastography showed, Liver elastography: Median liver stiffness is 1.95 m/s findings correlate with cACLD (suggestive). Liver Stiffness 1.7-2.1 m/s: suggestive of compensated advanced chronic liver disease but need further test for confirmation. -Hx of Hep C s/p tx with HUGH -Followed by [facility] Lab Results Component Value Date AST 26 11/11/2022 ALT 12 11/11/2022 TOTPROTEIN 9.0 (H) 11/11/2022 ALB 5.0 11/11/2022 ALP 72 11/11/2022 TOTALBILIRUB 0.6 11/11/2022 Resolved Problems Problem Noted Date Diagnosed Date Resolved Date Hepatitis C virus infection cured after antiviral drug therapy 07/01/2022 01/13/2023 Chronic hepatitis C 03/08/2022 04/07/19 Overview (04/07/2022): -Pt treated at [facility] Hep C clinic and started on Mavyret x 8 weeks. Completed tx 01/23/22. -Follows with [facility], has upcoming appt in early April 2022 -HUGH due 04/18/22, labs sent Encounters Date Type Department Care Team Description 06/26/2024 Refill [facility] MEDICINE [address] [place] [address] Maria D Chapin FNP Primary hypertension 05/07/2024 Population Health Risk Score [facility] Department [address] [phone] Provider, Population Health Generic 05/04/2024 Telephone [facility] PEDS [address] [place], [place] [id number] Maria D Chapin FNP May recall from Last 3 Months Immunizations Immunization Administration Dates Next Due Hep A, Adult 09/22/2023,08/06/2022 Hep B, adult 04/02/2022,11/20/2021,10/17/2021 Influenza injectable quadriv alent IIV4 with preservative 03/02/2019 Influenza injectable quadriv alent preservative free 11/20/2021 Moderna Covid-19 Vaccine 12+ 06/07/2020 Pneumococcal Conjugate PCV 20 08/06/2022 Tdap 03/02/2019 Social History Tobacco Use Types Packs/Day Years Used Date Smoking Tobacco: Former Cigarettes Q uit: 09/2022 Passive Smoke Exposure: Never Smokeless Tobacco: Never Tobacco Cessation:Counseling Given: Not Answered Alcohol Use Standard Drinks/Week Comments Never 0 (1 standard drink = 0.6 oz pur e alcohol) Depression Answer Date Recorded Patient Health Questionnaire-9 Score 10 03/05/2024 Patient Health Questionnaire-9 Score 10 03/05/2024 Last PHQ-9: Questionnaire Data Not on file 0 03/05/2024 Housing Stability Answer Date Recorded What is [...] Answer Date Recorded Patient Health Questionnaire-2 Score 3 03/05/2024 Internet Access Answer Date Recorded Internet Access Q1 Yes 10/27/2023 Internet Access Q2 Not on file 10/27/2023 Sex and Gender Information Value Date Recorded Sex Assigned at Male 12/24/2021 10:36 AM EDT Legal Sex Male 10:36 AM EDT Gender Identity Male 12/24/2021 10:36 AM EDT Sexual Orientation Straight 12/24/2021 10 :36 AM EDT Last Filed Vital Signs Vital Sign Reading Time Taken Comments Blood Pressure 122/78 03/05/2024 9:48 AM EST Pulse 69 03/05/2024 9:48 AM EST Temperature 36.3 ??C (97.4 ??F) 03/05/2024 9:48 AM ES T Respiratory Rate 20 03/05/2024 9:48 AM EST Oxygen Saturation 98% 09/22/2023 10:29 AM EDT Inhaled Oxygen Concentration - - Weight 76.7 kg (169 lb) 03/05/2024 9:48 AM EST Height 167.6 cm (5' 6 ) 03/05/2024 9:48 AM EST Body Mass Index 27.28 03/05/2024 9:48 AM EST Plan of Treatment Upcoming Encounters Date Type Department Care Team (Late st Contact Info) Description 07/16/2024 1:45 PM EDT Office Visit [facility] [address] [place] [address] Maria D Chapin, DONOR TECHNICIAN [address] [place] [address] Health Maintenance Due Date Last Done Comments CT Colonography 1974 FIT DNA/Cologuard 1974 FIT 1974 FOBT 1974 Sigmoidoscopy 1974 Disability Screening 1974 Alcohol/Substance Use Screening 1986 Family Planning (PISQ) 1989 Diabetes: Hemoglobin A1C 01/14/2024 023, 09/07/2021 Zoster Vaccines (1 of 2) 2024 Influenza Vaccine (#1) 2024 2, 03/02/2019 Postponed from 10/26/2023 (Patient Refused) SDOH Screening 09/21/2024 09/22/2023 COVID-19 Vaccine (2 - 2023-2 5 season) 2025 06/07/2020 Postponed from 10/25 (Patient Refused) Depression Screening 03/05/2025 03/05/2024, 03/05/2024 Tobacco Screening 03/05/2025 03/05/2024 Lipid Panel 09/07/2026 09/07/2021 Colonoscopy 10/09/2027 10/08/2022, 10/08/2022 Colorectal Cancer Screening 10/09/2027 DTaP/Tdap/Td Vaccines (2 - T d or Tdap) 03/02/2029 03/02/2019 RSV Patients and Patients Aged 60 years or older (1 - 1-dose 75+ series) 2049 HIV Screening Completed 09/07/2021 Hepatitis B Vaccines Completed 04/02/2022, 11/20/2021, 10/17/2021 Pneumococcal Vaccine: 50+ Years Completed 08/06/2022 Hepatitis A Vaccines Completed 09/22/2023, 08/06/2022 HIB Vaccines Aged Out No longer eligi ble based on patient's age to complete this topic HPV Vaccines Aged Out No longer eligi ble based on patient's age to complete this topic IPV Vaccines Aged Out No longer eligi ble based on patient's age to complete this topic Meningococcal B Vaccine Aged Out No l onger eligible based on patient's age to complete this topic Meningococcal Vaccine Aged Out No curly yovany eligible based on patient's age to complete this topic RSV under 20 months Aged Out No longe r eligible based on patient's age to complete this topic Rotavirus Vaccines Aged Out No longer eligible based on patient's age to complete this topic Procedures Procedure Name Priority Date/Time Associated Diagnosis Comments POCT GLYCATED HEMOGLOBIN, TOTAL Routine 01/13/2023 12:29 PM EST Prediabetes HM COLONOSCOPY Routine 10/08/2022 HIV 1/2 ANTIGEN/ANTIBODY, FOURTH GENERATION W/RFL Routine 09/07/2021 8:20 AM EDT LIPID PANEL, STANDARD Routine 09/07/2021 8:20 AM EDT from Last 3 Months or Most Recently Relevant to Health Maintenance Results * POCT A1C (01/13/2023 12:29 PM EST) [facility] Hemoglobin A1C 5.8 4.0 - 6.0 % QC Media Lot # [id number] Lot# Expiration Date Blood 01/13/2023 12:2 9 PM EST Maria D Chapin DONOR TECHNICIAN POINT OF CARE TEST ENTER/EDIT ORDERABLES Final Result * (ABNORMAL) Hm Colonoscopy (10/08/2022) [facility] Colonoscopy Abnormal(A ) Normal Kaushik Ayala MD HEALTH MAINTENANCE Final Result * HIV 1/2 ANTIGEN/ANTIBODY,FOURTH GENERATION W/RFL (09/07/2021 8:20 AM EDT) [facility] HIV-1/2 ANTIGEN AND ANTIBODIES, 4TH GENERATION W/ REFLEX NON-REACT CAYLA NON-REACT CAYLA [facility] Comment: HIV-1 antigen and HIV-1/HIV-2 antibodies were not detected. There is no laboratory evidence of HIV infection. ?? PLEASE NOTE: This information has been disclosed to you from records whose confidentiality may be protected by state law. ??If your state requires such protection, then the state law prohibits you from making any further disclosure of the information without the specific written consent of the person to whom it pertains, or as otherwise permitted by law. A general authorization for the release of medical or other information is NOT sufficient for this purpose. ? For additional information please refer to http://education.[employer]/faq/RED853 (This link is being provided for informational/ educational purposes only.) ? The performance of this assay has not been clinically validated in patients less than 2 years old. ?? 09/07/2021 8:20 AM EDT us Maria D Chapin DONOR TECHNICIAN LAB BLOOD ORDERABLES Final Res ult Performing Organization Address City/[facility]/ZIP Co de Phone Number [facility] [address] * (ABNORMAL) LIPID PANEL, STANDARD (09/07/2021 8:20 AM EDT) Chol/HDLC Ratio 4.1 <5.0 (calc) [facility] Cholesterol, Total 179 <200 mg/dL [facility] HDL Cholesterol 44 > OR = 40 mg/dL [facility] LDL Cholesterol 112(H) mg/dL (calc) [facility] Comment: Reference range: <100 ?? Desirable range <100 mg/dL for primary prevention; ?? <70 mg/dL for patients with CHD or diabetic patients ?? with > or = 2 CHD risk factors. ?? LDL-C is now calculated using the Lizandro ?? calculation, which is a validated novel method providing ?? better accuracy than the Friedewald equation in the ?? estimation of LDL-C. ?? Shahid FIGUEROA et al. CONNIE. 2013;310(19): 1352-9754 ?? (http://education.[employer]/faq/CPV540) Non-HDL Cholesterol 135(H) <130 mg/dL (calc) [facility] Comment: For patients with diabetes plus 1 major ASCVD risk ?? factor, treating to a non-HDL-C goal of <100 mg/dL ?? (LDL-C of <70 mg/dL) is considered a therapeutic ?? option. Triglycerides 121 <150 mg/dL [facility] 09/07/2021 8:20 AM EDT Maria D Chapin DONOR TECHNICIAN LAB BLOOD ORDERABLES Final Res ult Performing Organization Address [facility] de Phone Number [facility] [address] from Last 3 Months or Most Recently Relevant to Health Maintenance Insurance [employer] C3 Care Teams Relay Adjuster Relationship Specialty Start Date End Date Maria D Chapin FNP [address] [place] [id number] PCP - General Family Medicine 08/03/21May [address] [place] [address] Drive 3rd [place] [address] Gastroenterology 03/05/24
--- OUTSIDE RECORDS SUMMARY | 2024-07-13 11:23 | XMS_ITS | Continuity of Care Document ---
Author Organization [facility] Address [address] [place] [address] Phone Care Team Providers Care Celluloid Trimmer Name Role Phone Albert AGARWAL, Vincent Unavailable [...] Location Reason(s) For Visit Diagnoses Date Provider [facility], [address] [place] [address] tel:[phone] [facility] No Information 2011 Albert Kaur. [address] [place] [address], [id number] [place] [address]. tel:[phone] tel:[phone] [facility] right testicle swelling for one month (chief complaint) ORCHITIS/EPIDI DYMIT NEC 2011 Higinio Yañez . [address] [facility], [id number] [address] [place] [address]. tel:[phone] tel:[phone] [facility] pain in the mouth (chief complaint) Tooth Abscess 2010 Higinio Yañez . [address] [facility], [id number] [address] [place] [address], [facility], . tel:[phone] Family History Family Member Type Diagnosis Age At Onset Problem (finding) Family history of hyper tension Problem (finding) Family history of strok e Problem (finding) Family history of Diabe karie mellitus Problem (finding) Family history of coronary arteriosclerosis Problem (finding) Family history of Cance r - Payers Payer name Insurance type Covered green party ID Authoriza tion(s) No Information Social History [...]
[2024-07-13 11:42] LABS: MANUAL DIFF FLAG NO
[2024-07-13 12:04] LABS: Basophils Absolute Auto 0.1 X10*3/uL (0.0-0.2); Basophils Percent Auto 0.7 % (0-2); Eosinophils Absolute Auto 0.3 X10*3/uL (0.0-0.4); Hematocrit 42.2 % (42.0-52.0); Hemoglobin 13.8 g/dl (14.0-18.0); Imm Gran Abs Auto 0.06 X10*3/uL (0.00-0.03); Imm Gran Pct Auto 0.5 % (0.0-0.4); Lymphocytes Absolute Auto 4.7 X10*3/uL (1.2-4.9); Lymphocytes Percent Auto 36.9 % (20-40); Mean Corpuscular HGB Conc 32.7 g/dl (31.0-36.0); Mean Corpuscular Hemoglobin 27.1 pg (27.0-33.0); Mean Corpuscular Volume 82.7 fL (80.0-98.0); Mean Platelet Volume 12.3 fL (9.4-12.4); Monocytes Absolute Auto 0.8 X10*3/uL (0.1-1.2); Monocytes Percent Auto 6.5 % (2-11); Neutrophils Absolute Auto 6.9 x10*3/uL (2.0-8.3); Neutrophils Percent Auto 53.4 % (45-73); Platelet Count 240 X10*3/uL (160-400); Red Cell Distribution Width 12.9 % (11.0-16.0); White Blood Count 12.8 X10*3/uL (4.8-10.8)
[2024-07-13 12:12] LABS: Estimated Average Glucose 123 mg/dL; Hemoglobin A1C 139.2081 umol/L; Hemoglobin A1c % 5.9 % (<6.0); Total Hemoglobin (HGBA1C) 3406.0845 umol/L
[2024-07-13 12:30] LABS: Alanine Aminotransferase 28 U/L (0-40); Albumin Level 4.9 g/dL (3.5-5.0); Alkaline Phosphatase 94 U/L (39-117); Anion Gap 12 (12-20); Aspartate Amino Transferase 31 U/L (5-37); Bilirubin Direct 0.1 mg/dL (0.0-0.5); Bilirubin Total 0.4 mg/dL (0.0-1.0); Blood Urea Nitrogen 9 mg/dL (9-16); Calcium 9.9 mg/dL (8.4-10.2); Carbon Dioxide 27 mmol/L (22-29); Chloride 102 mmol/L (96-108); Cholesterol 237 mg/dL (<200); Estimated Glomerular Filt Rate > 60; Glucose Random 100 mg/dL (60-115); HDL Cholesterol 39 mg/dL (>40); LDL Cholesterol Calculated 121 mg/dL (<100); Potassium 3.7 mmol/L (3.3-5.1); Sodium 137 mmol/L (135-145); Total Protein 8.7 g/dL (6.5-8.0); Triglycerides 385 mg/dL (<150)
[2024-07-13 12:34] LABS: TSH reflex Free T4 1.91 uIU/mL (0.32-4.0)
[2024-07-14 04:15] LABS: HIV AB/AG Nonreactive (Nonreactive); HIV Num 1 0.07 S/CO (0.00-0.99)
[2024-07-14 11:43] LABS: RPR Rapid Plasma Reagin NON-REACTIVE (NON-REACTIVE)
[2024-07-14 14:09] LABS: HCV Log PCR <1.18 NOT DETECTED Log IU/mL (NOT DETECTED); HepC Viral Load <15 NOT DETECTED IU/mL (NOT DETECTED)
== END 2024-07-13 10:13 | disposition home or self-care (01) ==
LOC: HO.HHCL 10:12
PROVIDERS: Visit Provider Registered Nurse
DX: Z00.00 Encounter for general adult medical examination without abnormal findings (principal); Z11.4 Encounter for screening for human immunodeficiency virus [HIV]; B35.0 Tinea barbae and tinea capitis
CPT/HCPCS: 36415; 80053; 80061; 82248; 83036; 84443; 85025; 86592; 87389; 87522

== ENCOUNTER 2024-08-10 13:43 | Outpatient (AMB) | payer MEDICAID, SELFPAY ==
--- NOTE | 2024-08-10 13:53 | A.OFFVIS_ITS ---
Vital Signs 08/10/24 14:03 Height 5 ft 6 in Weight 170 lb BMI 27.4 BP 132/80 Blood Pressure Location Rt brachial Position Sitting Pulse 82 Pulse Source Pulse Oximeter Pulse Oximetry (%) 97 Oxygen Delivery Method Room Air Intake Visit Reasons: 6 mo f/u GERD Roids Intake Note: Est pt for mgmt of GERD + hemorrhoids. CC; Pt denies any GI sx or concerns at this time. Pt states that his medications are working OK for him and he is making great efforts to control sx with lifestyle changes and avoiding triggers. Avionics System Engineer Required: No Accompanied by: Self / Same As Patient Allergies narcotics Adverse Reaction (Severe, Uncoded 08/10/24 13:53) dependence HPI HPI 6 mo f/u GERD Roids: Details: Assessment & Plan (1) GERD (gastroesophageal reflux disease): Code(s): K21.9 - Gastro-esophageal reflux disease without esophagitis Category: Medical (2) Rectal bleeding: Comment: Well controlled with Proctosol cream Code(s): K62.5 - Hemorrhage of anus and rectum Category: Medical (3) IBS (irritable bowel syndrome): Code(s): K58.9 - Irritable bowel syndrome, unspecified Category: Medical Plan He will still have some episodes of rectal bleeding, but this is not frequent. His mother also struggled with hemorrhoids so there is likely a genetic factor exacerbated in the past when he has severe CIC r/t opiate use (he has been clean for 15 years). The proctosol cream does continue to help and he has not CIC or diarrhea currently. He continues to have eye problems and dental problems. He will be going for his dental impressions next. He continues to have episodes of gasping for air when he has perceived trouble swallowing his saliva. He recently had an EEG to see if seizures were in the ddx, but this was negative. He will have a cardiac workup next. ROV 6 mos. Medications: Refilled dicyclomine 20 mg PO BID 30 days 60 tabs 6RF hydrocortisone 2.5% (Proctosol HC) 1 appl NC BID 30 grams 6RF hemorrhoids K64.9 - Unspecified hemorrhoids omeprazole 20 mg PO DAILY 90 days 90 caps 3RF K21.9 - Gastro-esophageal reflux disease without esophagitis TODAY'S VISIT His attempt to get dentures did not go well, he felt they could not fit them and it would make him feel like he could not breath and I would panic. He is doing well with his omeprazole and the bentyl. He still will have troubles with stuff like pizza but then I know I will have trouble the next day. He is having less rectal bleeding, it has resolved well in the past with the proctosol cream, but he will have some bleeding if he eats foods, like pizza, that constipate him or make his stools harder. ROV 6 mos. PFSH Medical History Hepatitis C Testicular torsion Opioid abuse Hypertension Surgical History H/O colonoscopy S/P tendon repair History of orchiectomy Social History Alcohol intake: never Patient Tobacco Use Status: Former Tobacco user Tobacco use type: Cigarette Cigarettes Per Day: 10 Substance Use Type: Marijuana Review of Systems Const Denies fatigue, Denies fever(s), Denies night sweats, Denies poor appetite and Denies weight loss ENT Reports Normal hearing present, Denies dental pain, Denies dysphagia, Denies hearing loss, Denies mouth pain, Denies odynophagia, Denies throat swelling, Denies tongue swelling and Reports other (Dentition adequate) Card Reports no additional complaints Resp Reports no additional complaints GI Details: Denies abdominal pain, Denies melena, Denies bloating, Reports hematochezia, Re ports constipation, Denies GI cramping, Denies dysphagia, Denies excessive flatus, Denies early satiety, Reports heartburn, Denies diarrhea, Denies nausea, Denies odynophagia, Denies vomiting and Denies hematemesis Skin/Breast Denies pruritus, Denies lesions, Denies rash and Denies jaundice Neuro Reports Normal hearing present and Denies Abnormal speech present Endo Denies fatigue Aller/Immun Denies throat swelling and Denies tongue swelling Physical Exam Vital Signs: Last Vital Signs Pulse 82 08/10/24 14:03 BP 132/80 08/10/24 14:03 Pulse Ox 97 08/10/24 14:03 Oxygen Delivery Method Room Air 08/10/24 14:03 BMI result Body Mass Index 27.4 Const General: cooperative, no acute distress, well developed and well groomed Nutritional Appearance: average body habitus and well nourished Orientation/consciousness: oriented to person, oriented to place and oriented to time Limitations: No language barrier HEENT Head: Yes normocephalic and Yes atraumatic Eyes General: appearance normal, both eyes and all related structures Pupils: Equal, round and reactive pupils present Neck Neck: Yes normal visual inspection and Yes no lymphadenopathy Thyroid: Thyroid normal Resp Effort & Inspection: normal respiratory effort and able to speak in complete sentences Auscultation: clear to auscultation bilaterally Cardio Rate: regular rate Rhythm: regular rhythm Heart sounds: Normal, physiologic split S2 sound present Peripheral pulses: radial pulses present and posterior tibial pulses present GI Inspection: No distended and No Abdominal panniculus present Palpation (GI): Soft to palpation, nontender, no guarding, not rigid and No hepatosplenomegaly present Percussion: Yes normal to percussion Auscultation: normal bowel sounds Rectal Exam - Male: Yes deferred Skin General skin exam: no rashes or lesions noted, turgor normal, skin not dry, no jaundice, No spider nevi and no striae Rashes: no rashes Nails: normal Neuro General: oriented to person, oriented to place and oriented to time Cranial nerves: Yes Equal, round and reactive pupils present and Yes Normal hearing present Speech: No Abnormal speech present Extrem General: Yes normal to inspection, No clubbing, No cyanosis and No edema Psych Appearance: grossly normal and well kempt Mental Status: mental status grossly normal Speech and movement: Normal speech and movement present Affect: normal affect Attitude: cooperative Thought process: Normal thought process present and not confabulating Thought content: Normal thought content present Insight: Limited insight present (Psych) Judgement: Limited judgement present (Psych) Assessment & Plan Assessment & Plan (1) IBS (irritable bowel syndrome): Code(s): K58.9 - Irritable bowel syndrome, unspecified Category: Medical (2) GERD (gastroesophageal reflux disease): Code(s): K21.9 - Gastro-esophageal reflux disease without esophagitis Category: Medical (3) Rectal bleeding: Comment: Well controlled with Proctosol cream Code(s): K62.5 - Hemorrhage of anus and rectum Category: Medical (4) Hemorrhoids: Code(s): K64.9 - Unspecified hemorrhoids Category: Medical Plan His attempt to get dentures did not go well, he felt they could not fit them and it would make him feel like he could not breath and I would panic. He is doing well with his omeprazole and the bentyl. He still will have troubles with stuff like pizza but then I know I will have trouble the next day. He is having less rectal bleeding, it has resolved well in the past with the proctosol cream, but he will have some bleeding if he eats foods, like pizza, that constipate him or make his stools harder. ROV 6 mos. Medications: Refilled omeprazole 20 mg PO DAILY 90 caps 3RF 90 days K21.9 - Gastro-esophageal reflux disease without esophagitis dicyclomine 20 mg PO BID 60 tabs 6RF 30 days Coding Level of Care Code Est Pt Level 3 (10614) Diagnoses IBS (irritable bowel syndrome) K58.9 GERD (gastroesophageal reflux disease) K21.9 Rectal bleeding K62.5 Hemorrhoids K64.9
[2024-08-10 14:03] VITALS: BP 132/80; PULSE 82; O2SAT 97; BMI 27.4
--- OUTSIDE RECORDS SUMMARY | 2024-08-10 15:38 | XMS_ITS | Encounter Summary ---
Author Organization [employer] Address [address] [facility] [address] [place] [address] Care Team Providers Care Rivet Sticker Name Role Phone Maria D Chapin OPERATIONS RESEARCH DIRECTOR Primary Care Provider [phone] May Unavailable Encounter Details Date Type Department Care Team (Late st Contact Info) Description 10/21/2023 Orders Only [facility] MED & PEDS [address] [place] [address] Provider, MD Cecy Social History Tobacco Use Types Packs/Day Years [...] Care Team (Late st Contact Info) Description 10/15/2024 11:00 AM EDT Office Visit [facility] MED & PEDS [address] [place] [address] Maria D Chapin FNP [address] [place] [address] documented as of this encounter Procedures Procedure Name Priority Date/Time Associated Diagnosis Comments COLONOSCOPY Routine 10/08/2022 6:41 PM EDT documented in this encounter Results * (ABNORMAL) Colonoscopy (10/08/2022 6:41 PM EDT) Historical Provider HEALTH MAINTENANCE Final Result documented in this encounter Visit Diagnoses Not on filedocumented in this encounter Additional Health Concerns Assessment Noted Time PHQ-9 Depression Total Score: 10 024 11:12 AM EDT documented as of this encounter Care Teams Rivet Sticker Relationship Specialty Start Date End Date Maria D Chapin FNP [address] [place] [id number] PCP - General Family Medicine 08/03/21May [address] [place] [address] Drive 3rd [place] [address] Gastroenterology 03/05/24 documented as of this encounter
== END 2024-08-10 14:25 | disposition home or self-care (01) ==
PROVIDERS: PCP Registered Nurse; Visit Provider Nurse Practitioner
DX: K58.9 Irritable bowel syndrome, unspecified (principal); K21.9 Gastro-esophageal reflux disease without esophagitis; K62.5 Hemorrhage of anus and rectum; K64.9 Unspecified hemorrhoids
CPT/HCPCS: 99213

== ENCOUNTER → 2024-08-10 13:43 | Outpatient (BNVA) | payer MEDICAID, SELFPAY | PROVIDERS: PCP Registered Nurse; Visit Provider Nurse Practitioner | DX: K62.5 Hemorrhage of anus and rectum (principal); K58.9 Irritable bowel syndrome, unspecified; K21.9 Gastro-esophageal reflux disease without esophagitis; K64.9 Unspecified hemorrhoids | CPT/HCPCS: 99212 ==

== ENCOUNTER 2025-01-13 08:37 | Outpatient (REF) | payer MEDICAID, SELFPAY ==
[2025-01-13 11:14] LABS: MANUAL DIFF FLAG NO
[2025-01-13 11:25] LABS: Hematocrit 43.0 % (42.0-52.0); Hemoglobin 13.9 g/dl (14.0-18.0); Imm Gran Abs Auto 0.05 X10*3/uL (0.00-0.03); Imm Gran Pct Auto 0.4 % (0.0-0.4); Lymphocytes Absolute Auto 3.5 X10*3/uL (1.2-4.9); Mean Corpuscular HGB Conc 32.3 g/dl (31.0-36.0); Mean Corpuscular Hemoglobin 26.3 pg (27.0-33.0); Mean Corpuscular Volume 81.3 fL (80.0-98.0); NRBC Abs Auto 0.000 X10*3/uL (0.0-0.012); NRBC Pct Auto 0.0 /100WBC (0.0-0.2); Platelet Count 296 X10*3/uL (160-400); Red Blood Count 5.29 X10*6/uL (4.60-5.80); White Blood Count 12.4 X10*3/uL (4.8-10.8)
[2025-01-13 11:52] LABS: Alanine Aminotransferase 32 U/L (0-40); Albumin Level 5.4 g/dL (3.5-5.0); Alkaline Phosphatase 93 U/L (39-117); Aspartate Amino Transferase 32 U/L (5-37); Cholesterol 264 mg/dL (<200); HDL Cholesterol 43 mg/dL (>40); Total Protein 8.9 g/dL (6.5-8.0); Triglycerides 391 mg/dL (<150)
== END 2025-01-13 08:38 | disposition home or self-care (01) ==
LOC: HO.HHCL 08:37
PROVIDERS: PCP Registered Nurse; Visit Provider Registered Nurse
DX: Z00.00 Encounter for general adult medical examination without abnormal findings (principal); D72.829 Elevated white blood cell count, unspecified
CPT/HCPCS: 80061; 80076; 85025

== ENCOUNTER 2025-02-08 09:28 | Outpatient (AMB) | payer MEDICAID, SELFPAY ==
[2025-02-08 09:30] VITALS: BP 131/78; PULSE 71; BMI 27.8
--- NOTE | 2025-02-08 09:30 | MHC.OFFVIS ---
Vital Signs 02/08/25 09:30 Height 5 ft 6 in Weight 172 lb BMI 27.8 BP 131/78 Blood Pressure Location Rt brachial Position Sitting Pulse 71 Intake Visit Reasons: GERD, IBS Intake Note: Brayan presents in follow up of IBS and GERD. CC: Patient reports occasional rectal bleeding and RUQ abd pain since he was sarted on rosuvastatin. 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 Accompanied by: Self / Same As Patient Allergies narcotics Adverse Reaction (Severe, Uncoded 08/10/24 13:53) dependence HPI HPI GERD, IBS: Details: Assessment & Plan (1) IBS (irritable bowel syndrome): Code(s): K58.9 - Irritable bowel syndrome, unspecified Category: Medical (2) GERD (gastroesophageal reflux disease): Code(s): K21.9 - Gastro-esophageal reflux disease without esophagitis Category: Medical (3) Rectal bleeding: Comment: Well controlled with Proctosol cream Code(s): K62.5 - Hemorrhage of anus and rectum Category: Medical (4) Hemorrhoids: Code(s): K64.9 - Unspecified hemorrhoids Category: Medical Plan His attempt to get dentures did not go well, he felt they could not fit them and it would make him feel like he could not breath and I would panic. He is doing well with his omeprazole and the bentyl. He still will have troubles with stuff like pizza but then I know I will have trouble the next day. He is having less rectal bleeding, it has resolved well in the past with the proctosol cream, but he will have some bleeding if he eats foods, like pizza, that constipate him or make his stools harder. ROV 6 mos. Medications: Refilled omeprazole 20 mg PO DAILY 90 caps 3RF 90 days K21.9 - Gastro-esophageal reflux disease without esophagitis dicyclomine 20 mg PO BID 60 tabs 6RF 30 days TODAY'S VISIT [facility] Medical History Hepatitis C Testicular torsion Opioid abuse Hypertension Surgical History H/O colonoscopy S/P tendon repair History of orchiectomy Social History Alcohol intake: never Patient Tobacco Use Status: Former Tobacco user Tobacco use type: Cigarette Cigarettes Per Day: 10 Substance Use Type: Marijuana Review of Systems ENT Reports Normal hearing present Neuro Reports Normal hearing present and Denies Abnormal speech present Physical Exam Vital Signs: Last Vital Signs Pulse 71 02/08/25 09:30 BP 131/78 02/08/25 09:30 BMI result Body Mass Index 27.8 Const General: cooperative, no acute distress, well developed and well groomed Nutritional Appearance: average body habitus and well nourished Orientation/consciousness: oriented to person, oriented to place and oriented to time Limitations: No language barrier HEENT Head: Yes normocephalic and Yes atraumatic Eyes General: appearance normal, both eyes and all related structures Pupils: Equal, round and reactive pupils present Neck Neck: Yes normal visual inspection and Yes no lymphadenopathy Thyroid: Thyroid normal Resp Effort & Inspection: normal respiratory effort and able to speak in complete sentences Auscultation: clear to auscultation bilaterally Cardio Rate: regular rate Rhythm: regular rhythm Heart sounds: Normal, physiologic split S2 sound present Peripheral pulses: radial pulses present and posterior tibial pulses present GI Inspection: No distended and No Abdominal panniculus present Palpation (GI): Soft to palpation, nontender, no guarding, not rigid and No hepatosplenomegaly present Percussion: Yes normal to percussion Auscultation: normal bowel sounds Rectal Exam - Male: Yes deferred Skin General skin exam: no rashes or lesions noted, turgor normal, skin not dry, no jaundice, No spider nevi and no striae Rashes: no rashes Nails: normal Neuro General: oriented to person, oriented to place and oriented to time Cranial nerves: Yes Equal, round and reactive pupils present and Yes Normal hearing present Speech: No Abnormal speech present Extrem General: Yes normal to inspection, No clubbing, No cyanosis and No edema Psych Appearance: grossly normal and well kempt Mental Status: mental status grossly normal Speech and movement: Normal speech and movement present Affect: normal affect Attitude: cooperative Thought process: Normal thought process present and not confabulating Thought content: Normal thought content present Insight: Fair insight present (Psych) and Limited insight present (Psych) Judgement: Fair judgement present (Psych) and Limited judgement present (Psych) Assessment & Plan Assessment & Plan (1) Rectal bleeding: Comment: Well controlled with Proctosol cream Code(s): K62.5 - Hemorrhage of anus and rectum Category: Medical (2) IBS (irritable bowel syndrome): Code(s): K58.9 - Irritable bowel syndrome, unspecified Category: Medical (3) GERD (gastroesophageal reflux disease): Code(s): K21.9 - Gastro-esophageal reflux disease without esophagitis Category: Medical Plan His current GI regimen consists of omeprazole, dicyclomine, and Proctosol cream. Subjective Follow-up for rectal bleeding and bowel habits. Reports intermittent rectal bleeding and pain with bowel movements, previously reduced with Proctosol cream. Bleeding tends to flare when bowel movements are less frequent and stools are small and hard, leading to straining after 1?2 days without a normal movement. Identifies dietary triggers that worsen constipation, including cheese, white rice, white potatoes, and green bananas. Uses omeprazole intermittently for heartburn with good symptom control; noted stomach discomfort when taking it daily in the past, so now uses as needed. Takes dicyclomine regularly for cramping. Recently started rosuvastatin for markedly elevated cholesterol and has noticed new dull, muscle-like pain in the abdominal area; Pepto-Bismol provided some relief and patient is aware of potential for dark stools. Willing to start a daily fiber supplement and plans to purchase it online. Objective Assessment & Plan Constipation with associated rectal bleeding: Intermittent bleeding and pain associated with hard stools and straining; dietary triggers identified. Prior improvement with topical Proctosol noted. - Start daily fiber supplement, two tablets each day, to normalize stool consistency and reduce bleeding/straining - Patient to purchase fiber tablets online as discussed - Monitor response; adjust approach if bleeding persists despite fiber - Follow up in 10 weeks to assess efficacy Gastroesophageal reflux symptoms: Heartburn controlled with as-needed omeprazole; prior daily use associated with stomach discomfort. Pepto-Bismol acceptable for episodic symptom relief with counseling on benign dark stools. - Continue omeprazole as needed for heartburn - Refilled medication as requested - May use bismuth subsalicylate as needed; advised about black stools side effect Hyperlipidemia on statin therapy: Recently initiated rosuvastatin for markedly elevated cholesterol. Patient reports new localized dull, muscle-like abdominal pain since initiation. Discussed that statin-associated myalgias are typically more generalized, though atypical reactions can occur. - Continue rosuvastatin at present with close attention to symptoms - Patient counseled on monitoring for diffuse or worsening muscle symptoms and to report concerning changes Follow-up: Return in 10 weeks to review bleeding and bowel habit response to fiber, and reassess tolerance of rosuvastatin. Medications: Refilled omeprazole 20 mg PO DAILY 90 caps 0RF K21.9 - Gastro-esophageal reflux disease without esophagitis dicyclomine 20 mg PO BID 60 tabs 6RF 30 days hydrocortisone 2.5% (Proctosol HC) 1 appl UT BID 30 grams 6RF hemorrhoids K64.9 - Unspecified hemorrhoids Coding Level of Care Code Est Pt Level 3 (06776) Diagnoses Rectal bleeding K62.5 IBS (irritable bowel syndrome) K58.9 GERD (gastroesophageal reflux disease) K21.9
--- OUTSIDE RECORDS SUMMARY | 2025-02-08 11:03 | XMS_ITS | Encounter Summary ---
Author Organization [employer] Address [address] [place] [address] [address] [place] [address] Care Team Providers Care Tree And Shrub Worker Name Role Phone Maria D Chapin Primary Care Provider [phone] May Reason for Visit * Reason Onset Date Comments Referral 09/20/2024 Encounter Details Date Type Department Care Team (Late st Contact Info) Description 09/20/2024 Telephone [facility] MEDICINE [address] [place] [address] Maria D Chapin FNP [address] [place], [place] [id number] Referral Social History Tobacco Use Types Packs/Day Years [...] AM EDT documented as of this encounter Miscellaneous Notes * Telephone Encounter - Kelechi Merino - 09/20/2024 11:06 AM EDT TC from pt requesting new referral : DATE: 09/24/24 TIME: 09:55 AM Address: [address] [place] [address] Facility Name: [facility] Type of Specialist: Last Model Maker For Vision exam Provider : Dr. Josias Jorge Provider NPI : [id number] Phone # : [phone] documented in this encounter Plan of Treatment Upcoming Encounters Date Type Department Care Team (Late st Contact Info) Description 04/22/2025 10:00 AM EST Office Visit [facility] CHC MED & PEDS [address] [place] [address] Maria D Chapin FNP [address] [place] [address] documented as of this encounter Visit Diagnoses Not on filedocumented in this encounter Additional Health Concerns Assessment Noted Time PHQ-9 Depression Total Score: 10 025 10:28 AM EST documented as of this encounter Care Teams Tree And Shrub Worker Relationship Specialty Start Date End Date Maria D Chapin FNP [address] [place] [address] PCP - General Family Medicine 08/03/[address] [place] [address] 3rd [place] [address] Gastroenterology 03/05/24 documented as of this encounter
--- OUTSIDE RECORDS SUMMARY | 2025-02-08 11:03 | XMS_ITS | Encounter Summary ---
Author Organization [employer] Address [address] [facility] 7[address] [place] [address] Care Team Providers Care Rubber Goods Inspector Name Role Phone Maria D Chapin MARKETING GRAPHICS SPECIALIST Primary Care Provider [phone] May Unavailable Encounter Details Date Type Department Care Team (Late st Contact Info) Description 10/21/2023 Orders Only [facility] CHC MED & PEDS [address] [place] [address] Provider, MD Cecy Social History Tobacco Use [...] Description 04/22/2025 10:00 AM EST Office Visit [facility] MED & PEDS [address] [place] [address] Maria D Chapin FNP [address] [place] [address] documented as of this encounter Procedures Procedure [...] documented as of this encounter Care Teams Rubber Goods Inspector Relationship Specialty Start Date End Date Maria D Chapin FNP [address] [place] [address] PCP - General Family Medicine 08/03/[address]May [address] [place] [address] Drive 3rd [place] [address] Gastroenterology 03/05/24 documented as of this encounter
--- OUTSIDE RECORDS SUMMARY | 2025-02-08 11:03 | XMS_ITS | Encounter Summary ---
Author Organization [employer] Address [address] [place] [address] [address] [place] [address] Care Team Providers Care Mine Wirer Name Role Phone Maria D Chapin Primary Care Provider May Reason for Visit * Reason Comments Med Refill Encounter Details Date Type Department Care Team (Late st Contact Info) Description 10/13/2024 Refill [facility] MED & PEDS [address] [place], [place] [phone] Maria D Chapin FNP [address] [place], [place] [phone] Other hyperlipidemia; Mixed anxiety and depressive disorder Social History Tobacco Use Types Packs/Day Years [...] Description 04/22/2025 10:00 AM EST Office Visit [facility] MED & PEDS [address] [place] [address] Maria D Chapin FNP [address] [place] [address] documented as of this encounter Visit Diagnoses Diagnosis Other hyperlipidemia Mixed anxiety and depressive disorder Dysthymic disorder documented in this encounter Additional Health Concerns Assessment Noted Time PHQ-9 Depression Total Score: 10 025 10:28 AM EST documented as of this encounter Care Teams Mine Wirer Relationship Specialty Start Date End Date Maria D Chapin FNP [address] [place] [address] PCP - General Family Medicine 08/03/[address] [place] [address] Gastroenterology 03/05/24 documented as of this encounter
--- OUTSIDE RECORDS SUMMARY | 2025-02-08 11:03 | XMS_ITS | Clinical Summary ---
Author Organization [employer] Address [address] [place] [address] 7 [place] [address] Care Team Providers Care Sba Business Development Officer Name Role Phone Maria D Chapin ADRIAN Primary Care Provider [phone] May Unavailable Allergies No known active allergies [...] 07/24/19 24 Active econazole nitrate 1 % creamIndications:T inea barbae Apply topically 2 times daily. Apply to neck for 2-4 weeks 30 g 1 03/05/19 25 026 Active hydrocortisone 2.5 % creamIndications:T inea barbae Apply topically 2 times daily. Apply to neck for 2-4 weeks 30 g 03/05/19 25 Active lidocaine (Lidoderm) 5 % patch Apply 1 patch topically Once per day. Remove & discard patch within 12 hours or as directed by MD. 30 patch 1 03/05/19 25 Active amLODIPine-benazep ril (Lotrel) 5-10 MG capsuleIndications :Primary hypertension TAKE 1 CAPSULE BY MOUTH EVERY DAY 90 capsule 3 06/29/19 25 Active rosuvastatin (Crestor) 10 MG tabletIndications: Other hyperlipidemia Take 1 tablet (10 mg) by mouth at bedtime. (Cholesterol) 90 tablet 1 07/17/19 25 026 Active sertraline (Zoloft) 25 MG tabletIndications: Mixed anxiety and depressive disorder Take 1 tablet (25 mg) by mouth Once per day. 90 tablet 1 07/17/19 25 026 Active Active Problems Problem Noted Date Diagnosed Date Leukocytosis 01/22/2025 Assessment & Plan (01/22/2025 5:51 PM EST): Lab Results Component Value Date WBC 12.4 (H) 01/13/2025 WBC 12.8 (H) 07/13/2024 WBC 11.9 (H) 11/11/2022 - Persistent mild leukocytosis with normal morphology on review by midwife. - Risk factors: former tobacco use - Repeat blood work in 3 months. Other hyperlipidemia 07/18/2024 Overview (01/22/2025): Lab Results Component Value Date CHOL 264 (H) 01/13/2025 CHOL 237 (H) 07/13/2024 TRIG 391 (H) 01/13/2025 TRIG 385 (H) 07/13/2024 HDL 43 01/13/2025 HDL 39 (L) 07/13/2024 LDLCHOLCAL 143 (H) 01/13/2025 LDLCHOLCAL 121 (H) 07/13/2024 -continue lifestyle modification -rosuvastatin 10mg nightly Assessment & Plan (01/22/2025 5:52 PM EST): - LDL cholesterol remains elevated despite attempted lifestyle modification. - Re-Start cholesterol medication Assessment & Plan (07/18/2024 7:41 PM EDT): Plan to start rosuvastatin 10mg nightly. Reviewed med safety and SE. GERD (gastroesophageal reflux disease) Assessment & Plan (10/15/2024 10:59 AM EDT): Following with [facility] - [facility] [place] (last consult July 2024) Continues with omeprazole and Bentyl Assessment & Plan (10/02/2023 8:59 PM EDT): Following with [facility] - [facility] (last consult July 2023) Continues with omeprazole and Bentyl Hemorrhoids 10/02/2023 Near syncope 10/02/2023 Assessment & Plan (10/02/2023 9:15 PM EDT): Describes daily experience of near syncopal events provoked by swallowing. Onset: years Request swallow study results from [facility] Referral to [facility] for further evaluation History of rectal bleeding 02/10/2023 Overview (02/10/2023): Following with [facility] Sep 2022: Colonoscopy completed by Dr. Williamson for rectal bleeding. Identified polyps and internal hemorrhoids. Plan to repeat colonoscopy in 5 years or sooner if needed. Tubular adenoma Cont proctosol cream Tubular adenoma of colon 02/10/2023 Liver fibrosis 01/13/2023 Assessment & Plan (02/10/2023 9:56 PM EST): US abdomen w/ elastography ordered Dec 2022. Pt reports received call to schedule, but currently waiting until dental health has been stabilized. No acute changes. Encouraged cont lifestyle interventions. Routine health maintenance 04/07/2022 Overview (01/13/2023): Colonoscopy: completed 10/08/22, polyps, tubular adenoma. Due 2027 Lung CA: Discuss eligibility at 49 y/o PSA: August 2021 WNL Optometry: follows [facility]: Encouraged to establish dental home History of hepatitis C 04/07/2022 Overview (01/13/2023): Pt treated at [facility] Hep C clinic and started on Mavyret x 8 weeks. Completed tx 01/23/22. HUGH 06/17/22 Assessment & Plan (04/07/2022 6:52 [...] and daily physical activity Assessment & Plan (01/22/2025 5:52 PM EST): - Blood pressure is well controlled. - Continue current antihypertensive regimen. Assessment & Plan (10/17/2024 3:02 PM EDT): - Elevated in office, although well controlled per home readings. Advised to f/up if home readings above goal Assessment & Plan (03/05/2024 10:35 AM EST): [...] goal Mixed anxiety and depressive disorder 03/08/2022 Assessment & Plan (10/17/2024 3:04 PM EDT): -Pt denies SI/HI/thoughts of self harm -BH: declines referral at this time -Plan: cont sertraline 25mg daily Assessment & Plan (07/18/2024 7:39 PM EDT): -Declines interest in BE, but interested in med re-start -Pt denies SI/HI/thoughts of self harm -Plan: restart sertraline 25mg daily. Reviewed med safety and SE. Safety planning as needed. Follow up in 6-8 weeks. Assessment & Plan (03/05/2024 10:30 AM EST): -Reports history of challenging situations in his past, for which he used to use substances. Has been in recovery for the past 10 years approximately -Previous tx with Zoloft was changed to escitalopram given hx of liver dx. Pt did not feel as though as therapeutic/beneficial for him, and therefore DC'd med. -Declines referral to [facility] for therapist -Pt denies SI/HI/thoughts of self [...] and therefore DC'd med. -Declines referral to [facility] for therapist -Pt denies SI/HI/thoughts of self [...] at this time Opioid dependence in remission (CMS/HCC) 023 Prediabetes 03/08/2022 Overview (07/18/2024): Lab Results Component Value Date HGBA1C 5.9 07/13/2024 -Encouraged lifestyle interventions Tobacco dependence syndrome 03/08/2022 Assessment & Plan (01/13/2023 12:42 PM EST): Quit date: September 2022 -Congratulated on smoking cessation Hypertensive retinopathy 12/23/2021 Overview (10/15/2024): June 2023: [facility] [place]. Dr. Nelson. 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 Plan: observe and repeat OCT mac with Dr. Montalvo. Sep 2024: [facility] - central serous retinopathy. Initiated spironolactone 02/2022, but not fully resolved 2 years later. Spironolactone increased to 50mg BID Chronic liver disease 12/31/2019 Overview (10/17/2024): -US 11/01/21 with elastography showed, Liver elastography: Median liver stiffness is 1.95 m/s findings correlate with cACLD (suggestive). Liver Stiffness 1.7-2.1 m/s: suggestive of compensated advanced chronic liver disease but need further test for confirmation. -Hx of Hep C s/p tx with HUGH -Followed by [facility] Lab Results Component Value Date AST 31 07/13/2024 ALT 28 07/13/2024 TOTPROTEIN 8.7 (H) 07/13/2024 ALB 4.9 07/13/2024 ALP 94 07/13/2024 TOTALBILIRUB 0.4 07/13/2024 Assessment & Plan (10/17/2024 3:03 PM EDT): Consider repeat abd US if not ordered by specialist Resolved Problems Problem Noted Date Diagnosed Date Resolved Date Hepatitis C virus infection cured after antiviral drug therapy 07/01/2022 01/13/2023 Chronic hepatitis C (CMS/HCC) 03/08/2022 04/07/2022 Overview (04/07/2022): -Pt treated at [facility] Hep C clinic and started on Mavyret x 8 weeks. Completed tx 01/23/22. -Follows with [facility], has upcoming appt in early April 2022 -HUGH due 04/18/22, labs sent Encounters Date Type Department Care Team Description 01/17/2025 9:00 AM EST Office Visit [facility] [address] [place] [address] Maria D Chapin FNP Essential hypertension (Primary Dx); Encounter for immunization; Liver fibrosis; Leukocytosis, unspecified type; Hip flexor tightness, left; Other hyperlipidemia 01/17/2025 Travel 01/10/2025 Patient Outreach [facility] MEDICINE [address], [place] [phone] Maria D Chapin FNP Pre-visit Planning (Pre visit planning unable to LVM ) from Last 3 Months Immunizations Immunization Administration Dates Next Due Hep A, Adult 09/22/2023,08/06/2022 Hep B, adult 04/02/2022,11/20/2021,10/17/2021 Influenza injectable quadriv alent IIV4 with preservative 03/02/2019 Influenza injectable quadriv alent preservative free 11/20/2021 Influenza, seasonal, injecta ble, preservative free 01/17/2025 Moderna Covid-19 Vaccine 12+ 06/07/2020 Pneumococcal Conjugate [...] Answer Date Recorded Patient Health Questionnaire-9 Score 12 01/17/2025 Patient Health Questionnaire-9 Score 12 01/17/2025 Last PHQ-9: Questionnaire Data Not on file 1 03/19/2024 Housing Stability Answer Date Recorded What is your housing situation today? I have pop bravo 01/17/[address] you li ve. Do you have problems with any of the following? None of the above 01/17/2025 Food Insecurity Answer Date Recorded Within the past 12 months, y ou worried that your food would run out before you got money to buy more: Never True 01/17/2025 Within the past 12 months,th e food you bought just didn't last and you didn't have enough money to get more: Never True Transportation Answer Date Recorded In the past 12 months, has l ack of transportation kept you from medical appts, meetings, work or from getting things needed for daily living? No 01/17/2025 Utilities Answer Date Recorded In the past 12 months, has t he electric, gas, oil or water company threatened to shut off services in your home? No 01/17/2025 Depression Answer Date Recorded Patient Health Questionnaire-2 Score 4 01/17/2025 Internet Access Answer Date Recorded Internet Access Q1 Yes 01/17/2025 Internet Access Q2 Not on file 01/17/2025 Sex and Gender Information Value Date Recorded Sex Assigned at Male 12/24/2021 10:36 AM EDT Legal Sex Male 10:36 AM EDT Gender Identity Male 12/24/2021 10:36 AM EDT Sexual Orientation Straight 12/24/2021 10 :36 AM EDT Last Filed Vital Signs Vital Sign Reading Time Taken Comments Blood Pressure 130/85 01/17/2025 9:05 AM EST Pulse 90 01/17/2025 9:05 AM EST Temperature 36.5 C (97.7 F) 01/17/2025 9:05 AM EST Respiratory Rate 18 01/17/2025 9:05 AM EST Oxygen Saturation 99% 10/15/2024 11:01 AM EDT Inhaled Oxygen Concentration - - Weight 76.7 kg (169 lb) 01/17/2025 9:05 AM EST Height 168.9 cm (5' 6.5 ) 01/17/2025 9:05 AM EST Body Mass Index 26.87 01/17/2025 9:05 AM EST Plan of Treatment Upcoming Encounters Date Type Department Care Team (Late st Contact Info) Description 04/22/2025 10:00 AM EST Office Visit [facility] [address] [place] [address] Maria D Chapin, LEAD PRINCIPAL TECHNICAL ARCHITECT [address] [place] [address] Health Maintenance Due Date Last Done Comments CT Colonography 1974 FIT DNA/Cologuard 1974 FIT 1974 FOBT 1974 Sigmoidoscopy 1974 Family Planning (PISQ) 1989 RSV Patients and Patients Aged 60 years or older (1 - Risk 50-74 years 1-dose series) 2024 Zoster Vaccines (1 of 2) 2024 Diabetes: Hemoglobin A1C 07/13/2025 025, 01/13/2023, 09/07/2021 Depression Monitoring 07/17/2025 01/17/2025 , 01/17/2025 Alcohol/Substance Use Screening 01/17/2026 01/17/2025 COVID-19 Vaccine (2 - 2024-2 6 season) 2026 06/07/2020 Postponed from 10/25 (Patient Refused) Disability Screening 01/17/2026 01/17/2025 SDOH Screening 01/17/2026 01/17/2025 Tobacco Screening 01/17/2026 01/17/2025 Colonoscopy 10/09/2027 10/08/2022, 10/08/2022 Colorectal Cancer Screening 10/09/2027 DTaP/Tdap/Td Vaccines (2 - T d or Tdap) 03/02/2029 03/02/2019 Lipid Panel 01/13/2030 01/13/2025, 07/13/2024, 09/07/2021 Hepatitis B Vaccines Completed 04/02/2022, 11/20/2021, 10/17/2021 Pneumococcal Vaccine: 50+ Years Completed 08/06/2022 Hepatitis A Vaccines Completed 09/22/2023, 08/06/2022 HIV Screening Completed 07/13/2024, 09/07/2021 Influenza Vaccine Completed 01/17/2025, 11/20/2021, 03/02/2019 HIB Vaccines Aged Out No longer eligi [...] Procedure Name Priority Date/Time Associated Diagnosis Comments HEPATIC FUNCTION PANEL Routine 01/13/2025 9:04 AM EST Healthcare maintenance LIPID PANEL, STANDARD Routine 01/13/2025 9:04 AM EST Healthcare maintenance PATHOLOGIST REVIEW - CBC Routine 01/13/2025 9:04 AM EST Leukocytosis, unspecified type CBC WITH AUTO DIFFERENTIAL Routine 01/13/2025 9:04 AM EST Leukocytosis, unspecified type HIV 1/2 ANTIGEN/ANTIBODY, FOURTH GENERATION W/RFL Routine 07/13/2024 10:14 AM EDT Routine health maintenance HEMOGLOBIN A1C Routine 07/13/2024 10:14 AM EDT Routine health maintenance HM COLONOSCOPY Routine 10/08/2022 from Last 3 Months or Most Recently Relevant to Health Maintenance Results * Pathologist Review Of Peripheral Smear (01/13/2025 9:04 AM EST) Pathologist Review - CBC SEE NOTE [facility] Comment:White blood cells ar e mildly increased in number, butotherwise normal-appearing. Normochromic normocytic anemia.- Rock Post M.D. Pathology Blood Venous blood specimen / Unknown 01/13/2025 9:04 AM EST 01/13/2025 11:10 AM EST us Maria D Chapin LEAD PRINCIPAL TECHNICAL ARCHITECT LAB BLOOD ORDERABLES Final Res ult [facility] [address] [place] [phone] * (ABNORMAL) CBC auto differential (01/13/2025 9:04 AM EST) White Blood Count 12.4(H) 4.8 - 10.8 X10*3/uL [facility] Red Blood Count 5.29 4.60 - 5.80 X10*6/uL [facility] Hemoglobin 13.9(L) 14.0 - 18.0 g/dl [facility] Hematocrit 43.0 42.0 - 52.0 % [facility] Mean Corpuscular Volume 81.3 80.0 - 98.0 fL [facility] Mean Corpuscular Hemoglobin 26.3(L) 27.0 - 33.0 pg [facility] Mean Corpuscular HGB Conc 32.3 31.0 - 36.0 g/dl [facility] Red Cell Distribution Width 12.9 11.0 - 16.0 % [facility] Platelet Count 296 160 - 400 X10*3/uL [facility] Mean Platelet Volume 11.7 9.4 - 12.4 fL [facility] Neutrophils Percent Auto 61.3 45 - 73 % [facility] Imm Gran Pct Auto 0.4 0.0 - 0.4 % [facility] Lymphocytes Percent Auto 28.4 20 - 40 % [facility] Monocytes Percent Auto 7.4 2 - 11 % [facility] Eosinophils Percent Auto 1.9 0 - 4 % [facility] Basophils Percent Auto 0.6 0 - 2 % [facility] NRBC Pct Auto 0.0 0.0 - 0.2 /100WBC [facility] Neutrophils Absolute Auto 7.6 2.0 - 8.3 x10*3/uL [facility] Imm Gran Abs Auto 0.05(H) 0.00 - 0.03 X10*3/uL [facility] Lymphocytes Absolute Auto 3.5 1.2 - 4.9 X10*3/uL [facility] Monocytes Absolute Auto 0.9 0.1 - 1.2 X10*3/uL [facility] Eosinophils Absolute Auto 0.2 0.0 - 0.4 X10*3/uL [facility] Basophils Absolute Auto 0.1 0.0 - 0.2 X10*3/uL [facility] NRBC Abs Auto 0.000 0.0 - 0.012 X10*3/uL [facility] Blood Venous blood specimen / Unknown 01/13/2025 9:04 AM EST 01/13/2025 11:10 AM EST Maria D Chapin [facility] LAB BLOOD ORDERABLES Final Res ult Performing Organization Address [facility] Co de Phone Number [facility] [address] [place] [phone] * (ABNORMAL) Hepatic Function Panel (01/13/2025 9:04 AM EST) Bilirubin, Total 0.4 0.0 - 1.0 mg/dL [facility] Bilirubin, Direct 0.1 0.0 - 0.5 mg/dL [facility] Aspartate Amino Transferase 32 5 - 37 U/L [facility] Alanine Aminotransferase 32 0 - 40 U/L [facility] Total Protein 8.9(H) 6.5 - 8.0 g/dL [facility] Albumin Level 5.4(H) 3.5 - 5.0 g/dL [facility] Alkaline Phosphatase 93 39 - 117 U/L [facility] Blood Venous blood specimen / Unknown 01/13/2025 9:04 AM EST 01/13/2025 11:10 AM EST us Maria D Chapin LEAD PRINCIPAL TECHNICAL ARCHITECT LAB BLOOD ORDERABLES Final Res ult Performing Organization Address City/[facility]/ZIP Co de Phone Number [facility] [address] [place] [phone] * (ABNORMAL) Lipid Panel, Standard (01/13/2025 9:04 AM EST) Triglycerides 391(H) <150 mg/dL [facility] Comment:Desirable Triglyceri de: less than 150 mg/dLBorderline High Triglyceride 150-199 mg/dLHigh Triglyceride: 200-499 mg/dLVery High Triglyceride: greater than or equal to 5OO mg/dL Cholesterol 264(H) <200 mg/dL [facility] Comment:Desirable Cholestero l: less than 200 mg/dLBorderline High Cholesterol: 200-239 mg/dLHigh Cholesterol: greater than 239 mg/dL LDL Cholesterol Calculated 143(H) <100 mg/dL [facility] Comment:Desirable LDL: less than 100 mg/dLNear Optimal/Above Optimal LDL: 110- 129 mg/dLBorderline High LDL: 130-159 mg/dLHigh LDL: 160-189 mg/dLVery High LDL: greater than or equal to 190 mg/dL HDL Cholesterol 43 >40 mg/dL [facility] Comment:Desirable HDL: great er than 40 mg/dL Note: This HDL assay may give artificially low results in patients with liver disease. Blood Venous blood specimen / Unknown 01/13/2025 9:04 AM EST 01/13/2025 11:10 AM EST Maria D Chapin LEAD PRINCIPAL TECHNICAL ARCHITECT LAB BLOOD ORDERABLES Final Res ult Performing Organization Address [facility]/ZIP Co de Phone Number [facility] [address] [place] [address] [phone] * HIV-1/2 Antigen and Antibodies, Fourth Generation, with Reflexes (07/13/2024 10:14 AM EDT) HIV AB/AG Nonreactive Nonreactive [facility] Comment:HIV-1 p24 Ag and/or HIV-1/HIV-2 Ab not detected.A test result that is nonreactive does not exclude thepossibility of exposure to or infection with HIV-1 and/orHIV-2. Nonreactive results in this assay for individualswith prior exposure to HIV-1 and/or HIV-2 may be due toantigen and antibody levels that are below the limit ofdetection of this assay.The [employer] HIV Ag/Ab Combo assay result andsupplemental assay results should be interpreted inconjunction with the patient's clinical presentation,history and other laboratory results. If the results areinconsistent with clinical evidence, additional testing issuggested to confirm the result. Blood Venous blood specimen / Unknown 07/13/2024 10:14 AM EDT 07/13/2024 11:37 AM EDT Maria D Chapin [facility] LAB BLOOD ORDERABLES Final Res ult Performing Organization Address [facility] Co de Phone Number [facility] [address] [place] [phone] * Hemoglobin A1c (07/13/2024 10:14 AM EDT) Hemoglobin A1c 5.9 <6.0 % [facility] Comment:Hemoglobin A1C Refer ence Range Adults: 4.8 - 6.0 % Non diabetic: < 6.0 % Goal: < 7.0 %Additional Action Suggested: > 8.0 %Note: Hemoglobin A1c results are invalid for patients with abnormal amounts of HbF. Blood transfusions may impact the HbA1c concentration in the patient sample. Estimated Average Glucose 123 mg/dL [facility] Comment:eAG = Estimated ave rage glucose which is %A1C expressed asaverage glucose, using the formula of the [id number] Glucose study (ADAG), Diabetes Care, Vol.31,#8,2007 Blood Venous blood specimen / Unknown 07/13/2024 10:14 AM EDT 07/13/2024 11:37 AM EDT Maria D Chapin [facility] LAB BLOOD ORDERABLES Final Res ult Performing Organization Address [facility] Co de Phone Number [facility] [address] [place] [phone] * (ABNORMAL) Colonoscopy (10/08/2022) Colonoscopy Abnormal(A ) Normal Kaushik Ayala MD HEALTH MAINTENANCE Final Result from Last 3 Months or Most Recently Relevant to Health Maintenance Insurance [employer] Care Teams Sba Business Development Officer Relationship Specialty Start Date End Date Maria D Chapni FNP [address] [place] [phone] PCP - General Family Medicine 08/03/21May [address] [place] [address] Gastroenterology 03/05/24
== END 2025-02-08 10:36 | disposition home or self-care (01) ==
LOC: HO.HGI 09:29
PROVIDERS: PCP Registered Nurse; Visit Provider Nurse Practitioner
DX: K62.5 Hemorrhage of anus and rectum (principal); K58.9 Irritable bowel syndrome, unspecified; K21.9 Gastro-esophageal reflux disease without esophagitis
CPT/HCPCS: 99213

== ENCOUNTER → 2025-02-08 09:28 | Outpatient (BNVA) | payer MEDICAID, SELFPAY | PROVIDERS: PCP Registered Nurse; Visit Provider Nurse Practitioner | DX: K21.9 Gastro-esophageal reflux disease without esophagitis (principal); K58.1 Irritable bowel syndrome with constipation; K62.5 Hemorrhage of anus and rectum; E78.5 Hyperlipidemia, unspecified; K64.9 Unspecified hemorrhoids; Z79.899 Other long term (current) drug therapy; Z71.3 Dietary counseling and surveillance; Z68.27 Body mass index [BMI] 27.0-27.9, adult | CPT/HCPCS: 99212 ==